=== PATIENT | female | born 1945 ===

== ENCOUNTER 2017-12-04 09:30 | Emergency (ER) | payer MEDICARE, OTHER ==
[2017-12-04 09:53] VITALS: BP 139/69; PULSE 84; RESP 18; TEMP 97.2
[2017-12-04] MEDS ORDERED: SODIUM CHLORIDE 0.9% 1,000 ML IV STA (10:20)
[2017-12-04] MEDS ORDERED: valACYclovir 500 MG TAB PO STA (10:30)
[2017-12-04] MEDS ORDERED: HYDROcodone/APAP 5-325MG 1 EACH TAB PO STA (10:31)
[2017-12-04] MEDS ORDERED: valACYclovir HCL 1,000 MG TABLET PO STA (10:33)
--- NOTE | 2017-12-04 10:35 | ED ---
General Adult HPI - General Chief complaint: Fever Stated complaint: Fever and rash Time Seen by Provider: 12/04/17 10:10 Source: patient, family, RN notes reviewed Mode of arrival: ambulatory Limitations: language barrier - History of Present Illness Initial comments: This a 72-year-old female presents emergency Department chief complaint rash in the right side. Patient states started last few days. He states is painful. She complains of pain on the right side of her head associated with. Patient felt that she had a fever last night took some Tylenol recent, which and today. Patient has no fever. Patient denies cough, chest congestion, neck pain, neck stiffness, nausea, vomiting diarrhea constipation no dysuria no hematuria denies any body aches. - Related Data Home Medications Medication Instructions Recorded Confirmed Anastrozole [Arimidex] 1 mg PO DAILY 10/28/17 10/28/17 Ascorbic Acid [Vitamin C] 1,000 mg PO DAILY 10/28/17 10/28/17 Aspirin 81 mg PO DAILY 10/28/17 10/28/17 Atorvastatin [Lipitor] 40 mg PO HS 10/28/17 10/28/17 Chlorthalidone [Hygroton] 25 mg PO DAILY 10/28/17 10/28/17 Cholecalciferol (Vitamin D3) 2,000 unit PO DAILY 10/28/17 10/28/17 [Vitamin D3] Glucosam/Bashir-Msm1/C/Vitaliy/Bosw 1 tab PO DAILY 10/28/17 10/28/17 [Glucosamine-Chondroitin Tablet] Ibuprofen 200 - 800 mg PO Q6H PRN 10/28/17 10/28/17 Losartan Potassium 100 mg PO DAILY 10/28/17 10/28/17 Metoprolol Tartrate [Lopressor] 12.5 mg PO BID 10/28/17 10/28/17 Risedronate Sodium [Actonel] 35 mg PO SA 10/28/17 10/28/17 metFORMIN HCL [Glucophage] 500 mg PO DAILY 10/28/17 10/28/17 Previous Rx's Medication Instructions Recorded Amoxicillin/Potassium Clav 1 tab PO Q12HR 7 Days #14 tab 10/30/17 [Augmentin 875-125 Tablet] Promethazine HCl/Codeine 5 ml PO Q6HR 5 Days #100 ml 10/30/17 [Prometh-Codein 6.25-10 mg/5 ml] predniSONE 10 mg PO DAILY 12 Days #24 tab 10/30/17 Albuterol Sulfate [Proair Hfa] 2 puff INHALATION QID #1 inhaler 10/31/17 Hydrocodone/Acetaminophen [Casmalia 1 tab PO Q6HR PRN #20 tab 12/04/17 5-325] valACYclovir HCL [Valtrex] 1,000 mg PO Q8HR #30 tab 12/04/17 Allergies Allergy/AdvReac Type Severity Reaction Status Date / Time No Known Allergies Allergy Verified 12/04/17 09:53 Review of Systems ROS Statement: Those systems with pertinent positive or pertinent negative responses have been documented in the HPI. ROS Other: All systems not noted in ROS Statement are negative. Past Medical History Past Medical History: Coronary Artery Disease (CAD), Cancer, Diabetes Mellitus, GERD/Reflux, Hyperlipidemia, Hypertension, Myocardial Infarction ([place]), Osteoarthritis (OA) Additional Past Medical History / Comment(s): rt breast cancer(sc and chemo),rt arm lymhedema, benign thyroid nodules,anxiety,osteoporosis, macular pucker lt eye, "born with only one kidney", received a shingles vaccine 2014, Last Myocardial Infarction Date:: ?2004 or 2005 History of Any Multi-Drug Resistant Organisms: None Reported Past Surgical History: Section Additional Past Surgical History / Comment(s): right mastectomy, thyrid nodules removed([place]) Past Anesthesia/Blood Transfusion Reactions: No Reported Reaction Past Psychological History: No Psychological Hx Reported Smoking Status: Never smoker Past Alcohol Use History: None Reported Past Drug Use History: None Reported - Past Family History Father History Unknown: Yes General Exam Limitations: language barrier General appearance: alert, in no apparent distress Head exam: Present: atraumatic, normocephalic, normal inspection Eye exam: Present: normal appearance, PERRL, EOMI. Absent: scleral icterus, conjunctival injection, periorbital swelling ENT exam: Present: normal exam, normal oropharynx, mucous membranes moist Neck exam: Present: normal inspection, full ROM. Absent: tenderness, meningismus, lymphadenopathy Respiratory exam: Present: normal lung sounds bilaterally. Absent: respiratory distress, wheezes, rales, rhonchi, stridor Cardiovascular Exam: Present: regular rate, normal rhythm, normal heart sounds. Absent: systolic murmur, diastolic murmur, rubs, gallop, clicks GI/Abdominal exam: Present: soft, normal bowel sounds. Absent: distended, tenderness, guarding, rebound, rigid Neurological exam: Present: alert, oriented X3, CN II-XII intact Skin exam: Present: warm, dry, intact, normal color, rash (Erythematous it's vesicular papular rash noted of the right side upper chest, right neck region) Course Vital Signs 12/04/17 09:50 Temperature 97.2 F L Pulse Rate 84 Respiratory 18 Rate Blood Pressure 139/69 O2 Sat by Pulse 100 Oximetry Medical Decision Making - Medical Decision Making 72-year-old female presented from for rash, possible fever. Patient's vitals stable no evidence of fever no evidence of bacterial infection. Patient exam is benign other than rash consistent with shingles. Patient was started on Valtrex, pain medication return parameters discussed. Disposition Clinical Impression: Herpes zoster Disposition: HOME SELF-CARE Condition: Stable Instructions: Shingles (ED) Additional Instructions: Please return to the Emergency Department if symptoms worsen or any other concerns. Prescriptions: Hydrocodone/Acetaminophen [Casmalia 5-325] 1 tab PO Q6HR PRN #20 tab PRN Reason: Pain valACYclovir HCL [Valtrex] 1,000 mg PO Q8HR #30 tab Referrals: Dmitry Finn MD [Primary Care Provider] - 1-2 days Time of Disposition: 10:35
== END 2017-12-04 10:47 | disposition home or self-care (01) ==
LOC: EC 09:30
DX: B02.9 Zoster without complications (principal); E78.5 Hyperlipidemia, unspecified; I10 Essential (primary) hypertension; M81.0 Age-related osteoporosis without current pathological fracture; E11.9 Type 2 diabetes mellitus without complications; I25.10 Atherosclerotic heart disease of native coronary artery without angina pectoris; I25.2 Old myocardial infarction; M19.90 Unspecified osteoarthritis, unspecified site; Z85.3 Personal history of malignant neoplasm of breast; Z79.82 Long term (current) use of aspirin; Z79.84 Long term (current) use of oral hypoglycemic drugs; Z79.899 Other long term (current) drug therapy; Z92.21 Personal history of antineoplastic chemotherapy; Z90.11 Acquired absence of right breast and nipple
CPT/HCPCS: 99283

== ENCOUNTER 2017-12-09 03:50 | Inpatient (IN) | payer MEDICARE, OTHER ==
[2017-12-09] MEDS ORDERED: SODIUM CHLORIDE 0.9% 1,000 ML IV STA (03:54)
--- NOTE | 2017-12-09 03:57 | ED ---
General Adult HPI - General Stated complaint: Weakness Time Seen by Provider: 12/09/17 03:54 Source: patient, family, RN notes reviewed, old records reviewed Limitations: language barrier - History of Present Illness Initial comments: 72-year-old female presenting with generalized weakness. Patient speaks limited Vietnamese, her who is at bedside is able to give additional details. She was recently diagnosed with shingles, currently on valacyclovir and Esko for pain. Over the past 24-48 hours patient has had difficulty with ambulation and generalized weakness. No history of fever. According to her she's had decreased urine output and some episodes of confusion. No history of fever. No history of vomiting or diarrhea. No pain complaints, no chest pain or dyspnea. - Related Data Home Medications Medication Instructions Recorded Confirmed Anastrozole [Arimidex] 1 mg PO DAILY 10/28/17 12/09/17 Ascorbic Acid [Vitamin C] 1,000 mg PO DAILY 10/28/17 12/09/17 Aspirin 81 mg PO DAILY 10/28/17 12/09/17 Atorvastatin [Lipitor] 40 mg PO HS 10/28/17 12/09/17 Chlorthalidone [Hygroton] 25 mg PO DAILY 10/28/17 12/09/17 Cholecalciferol (Vitamin D3) 2,000 unit PO DAILY 10/28/17 12/09/17 [Vitamin D3] Glucosam/Bashir-Msm1/C/Vitaliy/Bosw 1 tab PO DAILY 10/28/17 12/09/17 [Glucosamine-Chondroitin Tablet] Ibuprofen 200 - 800 mg PO Q6H PRN 10/28/17 12/09/17 Losartan Potassium 100 mg PO DAILY 10/28/17 12/09/17 Metoprolol Tartrate [Lopressor] 12.5 mg PO BID 10/28/17 12/09/17 Risedronate Sodium [Actonel] 35 mg PO SA 10/28/17 12/09/17 metFORMIN HCL [Glucophage] 500 mg PO DAILY 10/28/17 12/09/17 Previous Rx's Medication Instructions Recorded Amoxicillin/Potassium Clav 1 tab PO Q12HR 7 Days #14 tab 10/30/17 [Augmentin 875-125 Tablet] Promethazine HCl/Codeine 5 ml PO Q6HR 5 Days #100 ml 10/30/17 [Prometh-Codein 6.25-10 mg/5 ml] predniSONE 10 mg PO DAILY 12 Days #24 tab 10/30/17 Albuterol Sulfate [Proair Hfa] 2 puff INHALATION QID #1 inhaler 10/31/17 Hydrocodone/Acetaminophen [Esko 1 tab PO Q6HR PRN #20 tab 12/04/17 5-325] valACYclovir HCL [Valtrex] 1,000 mg PO Q8HR #30 tab 12/04/17 Allergies Allergy/AdvReac Type Severity Reaction Status Date / Time No Known Allergies Allergy Verified 12/09/17 03:57 Review of Systems ROS Statement: Those systems with pertinent positive or pertinent negative responses have been documented in the HPI. ROS Other: All systems not noted in ROS Statement are negative. Past Medical History Past Medical History: Coronary Artery Disease (CAD), Cancer, Diabetes Mellitus, GERD/Reflux, Hyperlipidemia, Hypertension, Myocardial Infarction ([place]), Osteoarthritis (OA) Additional Past Medical History / Comment(s): rt breast cancer(sc and chemo),rt arm lymhedema, benign thyroid nodules,anxiety,osteoporosis, macular pucker lt eye, "born with only one kidney", received a shingles vaccine 2014, Last Myocardial Infarction Date:: ?2004 or 2005 History of Any Multi-Drug Resistant Organisms: None Reported Past Surgical History: Section Additional Past Surgical History / Comment(s): right mastectomy, thyrid nodules removed([place]) Past Anesthesia/Blood Transfusion Reactions: No Reported Reaction Past Psychological History: No Psychological Hx Reported Smoking Status: Never smoker Past Alcohol Use History: None Reported Past Drug Use History: None Reported - Past Family History Father History Unknown: Yes General Exam General appearance: alert, in no apparent distress Head exam: Present: atraumatic, normocephalic Eye exam: Present: normal appearance, PERRL ENT exam: Present: mucous membranes dry Neck exam: Present: normal inspection, tenderness (Right cervical zoster), other. Absent: meningismus Respiratory exam: Absent: normal lung sounds bilaterally, respiratory distress, wheezes Cardiovascular Exam: Present: regular rate, normal rhythm GI/Abdominal exam: Present: soft. Absent: distended, tenderness, guarding Extremities exam: Present: normal inspection. Absent: normal capillary refill, pedal edema Neurological exam: Present: alert. Absent: motor sensory deficit Skin exam: Present: warm, dry, rash (Right cervical zoster) Course Vital Signs 12/09/17 12/09/17 03:51 05:03 Temperature 98.1 F Pulse Rate 83 90 Respiratory 20 20 Rate Blood Pressure 160/93 166/71 O2 Sat by Pulse 98 97 Oximetry EKG Findings - EKG Comments: EKG Findings:: EKG normal sinus rhythm, ventricular rate 80, PA interval 174, QRS duration 80. QT 6:15, poor baseline secondary to tremor, no definitive signs of ischemia Medical Decision Making - Medical Decision Making 72-year-old female presenting with weakness and confusion. Patient has nonfocal neurologic examination. She is confused according to family, history limited from patient secondary to language barrier and current mental status. Laboratory studies obtained, patient has profound hyponatremia with a sodium of 96, potassium 2.5, chloride 57. This represents severe electrolyte abnormalities. White blood cell, hemoglobin within normal limits. Case is discussed with nephrology, patient will be placed on 3% hypertonic saline at 20 mL per hour, with repeat labs in 3 hours. Urinalysis, urine sodium and urine osmolality are pending. Chest x-ray shows possible atelectasis, admitting team will obtain chest CT. Head CT is negative for intracranial hemorrhage or mass effect. Patient will be placed in ICU for close monitoring. Dr. Martinez and Dr. Givens aware. - Lab Data Result diagrams: 12/09/17 04:11 12/09/17 04:11 Lab Results 12/09/17 12/09/17 12/09/17 Range/Units 04:11 04:11 04:11 WBC 8.9 (3.8-10.6) k/uL RBC 5.26 (3.80-5.40) m/uL Hgb 15.0 D (11.4-16.0) gm/dL Hct 38.9 (34.0-46.0) % MCV 74.1 L D (80.0-100.0) fL MCH 28.5 (25.0-35.0) pg MCHC 38.5 H (31.0-37.0) g/dL RDW 13.4 (11.5-15.5) % Plt Count 418 (150-450) k/uL Neutrophils % (Manual) 72 % Lymphocytes % (Manual) 14 % Monocytes % (Manual) 14 % Neutrophils # (Manual) 6.41 (1.3-7.7) k/uL Lymphocytes # (Manual) 1.25 (1.0-4.8) k/uL Monocytes # (Manual) 1.25 H (0-1.0) k/uL Nucleated RBCs 0 (0-0) /100 WBC Manual Slide Review Performed Hyperchromasia Marked Microcytosis Slight PT (9.0-12.0) sec INR (<1.2) APTT (22.0-30.0) sec Sodium 96 L* (137-145) mmol/L Potassium 2.5 L* (3.5-5.1) mmol/L Chloride 57 L* (98-107) mmol/L Carbon Dioxide 28 (22-30) mmol/L Anion Gap 11 mmol/L BUN 10 (7-17) mg/dL Creatinine 0.40 L (0.52-1.04) mg/dL Est GFR (CKD-EPI)AfAm >90 (>60 ml/min/1.73 sqM) Est GFR (CKD-EPI)NonAf >90 (>60 ml/min/1.73 sqM) Glucose 170 H (74-99) mg/dL POC Glucose (mg/dL) (75-99) mg/dL POC Glu [employer] ID Plasma Lactic Acid Benigno (0.7-2.0) mmol/L Calcium 8.7 (8.4-10.2) mg/dL Magnesium 1.7 (1.6-2.3) mg/dL Total Bilirubin 1.6 H (0.2-1.3) mg/dL AST 69 H (14-36) U/L ALT 34 (9-52) U/L Alkaline Phosphatase 110 (38-126) U/L Total Creatine Kinase 554 H (30-135) U/L CK-MB (CK-2) 4.9 H* (0.0-2.4) ng/mL CK-MB (CK-2) Rel Index 0.9 Troponin I 0.034 (0.000-0.034) ng/mL Total Protein 7.1 (6.3-8.2) g/dL Albumin 4.2 (3.5-5.0) g/dL 12/09/17 12/09/17 12/09/17 Range/Units 04:11 04:11 04:19 WBC (3.8-10.6) k/uL RBC (3.80-5.40) m/uL Hgb (11.4-16.0) gm/dL Hct (34.0-46.0) % MCV (80.0-100.0) fL MCH (25.0-35.0) pg MCHC (31.0-37.0) g/dL RDW (11.5-15.5) % Plt Count (150-450) k/uL Neutrophils % (Manual) % Lymphocytes % (Manual) % Monocytes % (Manual) % Neutrophils # (Manual) (1.3-7.7) k/uL Lymphocytes # (Manual) (1.0-4.8) k/uL Monocytes # (Manual) (0-1.0) k/uL Nucleated RBCs (0-0) /100 WBC Manual Slide Review Hyperchromasia Microcytosis PT 9.9 (9.0-12.0) sec INR 1.0 (<1.2) APTT 23.8 (22.0-30.0) sec Sodium (137-145) mmol/L Potassium (3.5-5.1) mmol/L Chloride (98-107) mmol/L Carbon Dioxide (22-30) mmol/L Anion Gap mmol/L BUN (7-17) mg/dL Creatinine (0.52-1.04) mg/dL Est GFR (CKD-EPI)AfAm (>60 ml/min/1.73 sqM) Est GFR (CKD-EPI)NonAf (>60 ml/min/1.73 sqM) Glucose (74-99) mg/dL POC Glucose (mg/dL) 174 H (75-99) mg/dL POC Glu [employer] ID Don Fisher Plasma Lactic Acid Benigno 1.4 (0.7-2.0) mmol/L Calcium (8.4-10.2) mg/dL Magnesium (1.6-2.3) mg/dL Total Bilirubin (0.2-1.3) mg/dL AST (14-36) U/L ALT (9-52) U/L Alkaline Phosphatase (38-126) U/L Total Creatine Kinase (30-135) U/L CK-MB (CK-2) (0.0-2.4) ng/mL CK-MB (CK-2) Rel Index Troponin I (0.000-0.034) ng/mL Total Protein (6.3-8.2) g/dL Albumin (3.5-5.0) g/dL Critical Care Time Critical Care Time: Yes Total Critical Care Time: 45 Disposition Clinical Impression: Hyponatremia with decreased serum osmolality Disposition: ADMITTED IP TO THIS [facility] Condition: Serious Referrals: Dmitry Finn MD [Primary Care Provider] - 1-2 days Time of Disposition: 05:35 Decision to Admit Reason: Admit from EC Decision Date: 12/09/17 Decision Time: 05:36
[2017-12-09 04:20] LABS: Glucose,Whole Blood 174 mg/dL (75-99)
[2017-12-09 04:31] LABS: ALT 34 U/L (9-52); AST 69 U/L (14-36); Albumin 4.2 g/dL (3.5-5.0); Alkaline Phosphatase 110 U/L (38-126); Anion Gap 11 mmol/L; Blood Urea Nitrogen 10 mg/dL (7-17); Calcium 8.7 mg/dL (8.4-10.2); Carbon Dioxide 28 mmol/L (22-30); Glucose 170 mg/dL (74-99); Magnesium 1.7 mg/dL (1.6-2.3); Total Bilirubin 1.6 mg/dL (0.2-1.3); Total Protein 7.1 g/dL (6.3-8.2)
[2017-12-09 04:34] LABS: HCT 38.9 % (34.0-46.0); Hyperchromasia Marked; MCH 28.5 pg (25.0-35.0); Mean Platelet Volume 5.8; Microcytosis Slight; Platelet Count 418 k/uL (150-450); RBC 5.26 m/uL (3.80-5.40); RDW 13.4 % (11.5-15.5); WBC 8.9 k/uL (3.8-10.6)
[2017-12-09 04:35] LABS: MCHC 38.5 g/dL (31.0-37.0); MCV 74.1 fL (80.0-100.0); Partial Thromboplastin Time 23.8 sec (22.0-30.0); Potassium 2.5 mmol/L (3.5-5.1); Prothrombin Time 9.9 sec (9.0-12.0); Sodium 96 mmol/L (137-145)
[2017-12-09 04:36] LABS: Chloride 57 mmol/L (98-107)
[2017-12-09] MEDS ORDERED: POTASSIUM CHLORIDE ER 20 MEQ TAB.ER PO STA ×2 (04:41→12:50)
[2017-12-09] MEDS ORDERED: SODIUM CHLORIDE 0.9% 1,000 ML IV SCH ×2 (04:45→13:00)
[2017-12-09 04:59] LABS: Troponin I 0.034 ng/mL (0.000-0.034)
[2017-12-09 05:04] LABS: Creatine Kinase MB 4.9 ng/mL (0.0-2.4); Lymphocytes # (M) 1.25 k/uL (1.0-4.8); Monocytes # (M) 1.25 k/uL (0-1.0); Neutrophils # (M) 6.41 k/uL (1.3-7.7); Neutrophils % (M) 72 %; Nucleated Red Blood Cells 0 /100 WBC (0-0); Total Cells Counted 100
[2017-12-09] MEDS: POTASSIUM CHLORIDE 20 MEQ in WATER FOR INJECTION 1 100ML.BAG IVPB SCH ×2 (05:07→07:12)
--- NOTE | 2017-12-09 05:13 | CT ---
EXAM: CT Head Without Intravenous Contrast CLINICAL HISTORY: ITS.REASON CT Reason: weakness TECHNIQUE: Axial computed tomography images of the head/brain without intravenous contrast. CTDI is 60.3 mGy and DLP is 1054.2 mGy-cm. This CT exam was performed using one or more of the following dose reduction techniques: automated exposure control, adjustment of the mA and/or kV according to patient size, and/or use of iterative reconstruction technique. COMPARISON: CT head dated 10/28/2017. FINDINGS: Brain: Unchanged subtle focus low attenuation within the left parietal white matter. No evidence of acute intracranial hemorrhage. No mass effect or herniation. Ventricles: Unremarkable. No ventriculomegaly. Bones/joints: No acute fracture. Soft tissues: Unremarkable. Vasculature: Mild calcification of the distal internal carotid arteries. Sinuses: Unremarkable as visualized. Mastoid air cells: Unremarkable as visualized. IMPRESSION: No acute intracranial hemorrhage. Unchanged subtle focus of low attenuation within left parietal white matter is nonspecific but favored to represent a small chronic infarct.
--- NOTE | 2017-12-09 05:14 | XR ---
EXAM: XR Chest, 2 Views CLINICAL HISTORY: ITS.REASON XR Reason: Weakness TECHNIQUE: Frontal and lateral views of the chest. COMPARISON: Chest x-ray dated 11/12/2017. FINDINGS: Lungs: Mild patchy opacity along the left cardiac border may represent atelectasis or mild pneumonia. Pleural space: Unremarkable. No pneumothorax. Heart: Mild cardiomegaly. Mediastinum: Unremarkable. Bones/joints: Chronic deformity of the right humeral head. Reidentified severe degenerative changes of the right acromioclavicular joint. IMPRESSION: Mild patchy opacity along the left cardiac border may represent atelectasis or mild pneumonia.
[2017-12-09] MEDS ORDERED: SODIUM CHLORIDE 3%(HYPERTONIC) 500 ML IV SCH (05:15)
[2017-12-09] MEDS ORDERED: NALOXONE 0.4 MG/ML 1 ML VIAL IV PRN (05:24)
[2017-12-09 06:00] LABS: Amorphous Sediment,Urine Rare /hpf; Appearance,Urine Cloudy (Clear); Bilirubin,Urine Negative (Negative); Blood,Urine Negative (Negative); Color,Urine Light Yellow; Glucose,Urine (UA) Negative (Negative); Ketones,Urine 1+ (Negative); Leukocyte Esterase,Urine Negative (Negative); Nitrite,Urine Negative (Negative); PH, Urine 7.5 (5.0-8.0); Protein,Urine Trace (Negative); RBC,Urine 1 /hpf (0-5); Specific Gravity,Urine 1.009 (1.001-1.035); Urobilinogen,Urine <2.0 mg/dL (<2.0); WBC,Urine 2 /hpf (0-5)
[2017-12-09] MEDS ORDERED: RX INFO: IV CONTRAST WAS GIVEN 1 EACH MISC MISCELLANE PRN (06:35)
[2017-12-09] MEDS ORDERED: hydrALAZINE HCL 20 MG/ML 1 ML VIAL IVP PRN (06:44)
--- NOTE | 2017-12-09 06:44 | P.HPIM ---
History of Present Illness H&P Date: 12/09/17 Chief Complaint: confusion Patient is a 72-year-old female with a past medical history of diabetes mellitus type 2, hypertension, dyslipidemia, osteoporosis, and prior breast cancer treated with mastectomy and chemo who was brought into the emergency department by her family for increased confusion. In the emergency department she underwent an extensive evaluation. On initial exam she was slightly hypertensive with a blood pressure 160/93. Initial laboratory analysis showed a marked hyponatremia of 96, potassium 2.5, glucose 170, and slightly elevated CK of 554. Chest x-ray showed mild patchy opacity along the left cardiac border which appears to represent atelectasis. CT head showed no acute process. Dr. Martinez was contacted in the emergency department and recommended admission to the ICU and 3% saline as well as additional laboratory analysis. Arrangements were made for admission to the ICU. Patient was seen and examined at bedside in the emergency department. Family provided a history as patient has increased confusion. They stated for the last 4-5 days she has been changing from her baseline. She's had increased confusion. She has been talking when they're not asking her questions consistent with auditory hallucinations. They state that she has been complaining of dizziness and has been off balance. She also has developed profound weakness and had inability to stand from a sitting position and was not able to walk today. She's had decreased urination since yesterday. They have also noted a low appetite. She did start taking Valtrex on November 29 or due to severe outbreak of shingles. She did have the shingles vaccine in June of this year. She is also had constipation. Her daughter reports that she has been complaining she could not take a deep breath. She was also started on [place]. None of her other medications are new. She has been on chlorthalidone for quite some time. She did have right breast cancer in 2012 with a mastectomy and does have lymphedema. Review of Systems Unable to obtain further review of systems due to confusion. ROS unobtainable: due to mental status Past Medical History Past Medical History: Coronary Artery Disease (CAD), Cancer, Diabetes Mellitus, GERD/Reflux, Hyperlipidemia, Hypertension, Myocardial Infarction ([place]), Osteoarthritis (OA) Additional Past Medical History / Comment(s): rt breast cancer(sc and chemo 2012 ),rt arm lymhedema, benign thyroid nodules,anxiety,osteoporosis, macular pucker lt eye, solitary kidney, received a shingles vaccine Last Myocardial Infarction Date:: ?2004 or 2005 History of Any Multi-Drug Resistant Organisms: None Reported Past Surgical History: Section Additional Past Surgical History / Comment(s): right mastectomy, thyrid nodules biopsied (benign) Past Anesthesia/Blood Transfusion Reactions: No Reported Reaction Past Psychological History: No Psychological Hx Reported Smoking Status: Never smoker Past Alcohol Use History: None Reported Past Drug Use History: None Reported Additional History: Lives with her , very active, no assistive devices - Past Family History Father Additional Family Medical History / Comment(s): from Complications from kidney failure Mother Additional Family Medical History / Comment(s): from diabetic complications Medications and Allergies Home Medications Medication Instructions Recorded Confirmed Type Anastrozole [Arimidex] 1 mg PO DAILY 10/28/17 12/09/17 History Ascorbic Acid [Vitamin C] 1,000 mg PO DAILY 10/28/17 12/09/17 History Aspirin 81 mg PO DAILY 10/28/17 12/09/17 History Atorvastatin [Lipitor] 40 mg PO HS 10/28/17 12/09/17 History Chlorthalidone [[place]] 25 mg PO DAILY 10/28/17 12/09/17 History Cholecalciferol (Vitamin D3) 2,000 unit PO DAILY 10/28/17 12/09/17 History [Vitamin D3] Glucosam/Bashir-Msm1/C/Vitaliy/Bosw 1 tab PO DAILY 10/28/17 12/09/17 History [Glucosamine-Chondroitin Tablet] Ibuprofen 200 - 800 mg PO Q6H PRN 10/28/17 12/09/17 History Losartan Potassium 100 mg PO DAILY 10/28/17 12/09/17 History Metoprolol Tartrate [Lopressor] 12.5 mg PO BID 10/28/17 12/09/17 History Risedronate Sodium [Actonel] 35 mg PO SA 10/28/17 12/09/17 History metFORMIN HCL [Glucophage] 500 mg PO DAILY 10/28/17 12/09/17 History Amoxicillin/Potassium Clav 1 tab PO Q12HR 7 Days #14 tab 10/30/17 12/09/17 Rx [Augmentin 875-125 Tablet] Promethazine HCl/Codeine 5 ml PO Q6HR 5 Days #100 ml 10/30/17 12/09/17 Rx [Prometh-Codein 6.25-10 mg/5 ml] predniSONE 10 mg PO DAILY 12 Days #24 tab 10/30/17 12/09/17 Rx Albuterol Sulfate [Proair Hfa] 2 puff INHALATION QID #1 inhaler 10/31/17 Rx Hydrocodone/Acetaminophen [[place] 1 tab PO Q6HR PRN #20 tab 12/04/17 12/09/17 Rx 5-325] valACYclovir HCL [Valtrex] 1,000 mg PO Q8HR #30 tab 12/04/17 12/09/17 Rx Allergies Allergy/AdvReac Type Severity Reaction Status Date / Time No Known Allergies Allergy Verified 12/09/17 03:57 Physical Exam Osteopathic Statement: *. No significant issues noted on an osteopathic structural exam other than those noted in the History and Physical/Consult. Vitals: Vital Signs Temp Pulse Resp BP Pulse Ox 12/09/17 05:03 90 20 166/71 97 12/09/17 03:51 98.1 F 83 20 160/93 98 Intake and Output 12/08/17 12/08/17 12/09/17 14:59 22:59 06:59 Output Total 700 Balance -700 Output: Urine 700 Uretheral ([place]) 700 Other: Weight 56.245 kg General: Ill-appearing, no distress, appears at stated age, normal weight Derm: Right shoulder/neck/arm with crust and scale 3 vesicles on arm, no unusual ecchymoses, warm, dry Head: atraumatic, normocephalic, symmetric Eyes: EOMI, no lid lag, anicteric sclera, pupils equal round sluggishly reactive to light ENT: Nose and ears atraumatic, no thrush Neck: No thyromegaly, no cervical lymphadenopathy, trachea midline, supple Mouth: no lip lesion, mucus membranes moist Cardiovascular: S1S2 reg, no murmur, positive posterior tibial pulse bilateral, trace edema, capillary refill less than 2 seconds Lungs: CTA bilateral, no rhonchi, no rales , no accessory muscle use Abdominal: soft, nontender to palpation, no guarding, no appreciable organomegaly, normal bowel sounds Ext: no gross muscle atrophy, moving all 4 extremities independently unable to participate in formal muscle strength testing, no contractures, Neuro: CN II-XI grossly intact, light touch intact all 4 extremities, finger to nose within normal limits, Psych: Alert, intermittently follows commands in estonian and own language, flat affect Results CBC & Chem 7: 12/09/17 04:11 12/09/17 04:11 Labs: Abnormal Lab Results - Last 24 Hours (Table) 12/09/17 12/09/17 12/09/17 Range/Units 04:11 04:11 04:11 MCV 74.1 L D (80.0-100.0) fL MCHC 38.5 H (31.0-37.0) g/dL Monocytes # (Manual) 1.25 H (0-1.0) k/uL Sodium 96 L* (137-145) mmol/L Potassium 2.5 L* (3.5-5.1) mmol/L Chloride 57 L* (98-107) mmol/L Creatinine 0.40 L (0.52-1.04) mg/dL Glucose 170 H (74-99) mg/dL POC Glucose (mg/dL) (75-99) mg/dL Osmolality (280-301) mosm/kg Total Bilirubin 1.6 H (0.2-1.3) mg/dL AST 69 H (14-36) U/L Total Creatine Kinase 554 H (30-135) U/L CK-MB (CK-2) 4.9 H* (0.0-2.4) ng/mL Urine Appearance (Clear) Urine Protein (Negative) Urine Ketones (Negative) Amorphous Sediment (None) /hpf 12/09/17 12/09/17 12/09/17 Range/Units 04:11 04:19 05:22 MCV (80.0-100.0) fL MCHC (31.0-37.0) g/dL Monocytes # (Manual) (0-1.0) k/uL Sodium (137-145) mmol/L Potassium (3.5-5.1) mmol/L Chloride (98-107) mmol/L Creatinine (0.52-1.04) mg/dL Glucose (74-99) mg/dL POC Glucose (mg/dL) 174 H (75-99) mg/dL Osmolality 206 L* (280-301) mosm/kg Total Bilirubin (0.2-1.3) mg/dL AST (14-36) U/L Total Creatine Kinase (30-135) U/L CK-MB (CK-2) (0.0-2.4) ng/mL Urine Appearance Cloudy H (Clear) Urine Protein Trace H (Negative) Urine Ketones 1+ H (Negative) Amorphous Sediment Rare H (None) /hpf Chest x-ray: report reviewed CT Scan - head: report reviewed Thrombosis Risk Factor Assmnt - DVT/VTE Prophylaxis DVT/VTE Prophylaxis: Pharmacologic Prophylaxis ordered Assessment and Plan Assessment: Metabolic encephalopathy - treat electrolyte derangements - supportive care Hyponatremia - appears euvolemic - 3% saline ordered with recheck in 3 hours - check TSH - seizure precautions - hold chlorthalidone, motrin - nephrology consult - concerned for SIADH with hx of breast Ca and atelectasis on CXR will order CT of the chest for this afternoon - urine osmol and urine NA are pending Hypokalemia - tele - replace and check - magnesium low normal recheck with next set of lytes Shingles - hold valtrex with current symptoms - pain control DM 2 - off metformin - SSI - A1C 6.4 on 10/28/17 HTN urgency - likely due to stress - prn hydralazine - hold chlorthalidone - Losartan, metoprolol HLD - statin GERD - PPI Hx of breast Ca - right lymphedema Osteoprosis - on bisphosphonate Surrogate decision-maker: Dread CODE STATUS:Full DVT prophylaxis: Lovenox Discussed with: Patient, family, ED physician, ED nursing Anticipated discharge: 3-[address]: home A total of 80 minutes was spent on the care of this complex patient more than 50 % of the time was spent in counseling and care coordination.
[2017-12-09 08:32] LABS: Glucose,Whole Blood 157 mg/dL (75-99)
--- NOTE | 2017-12-09 08:45 | CT ---
EXAMINATION TYPE: CT chest w con DATE OF EXAM: 12/09/2017 COMPARISON: NONE HISTORY: Cough, history of breast cancer CT DLP: 128.20 mGycm Automated exposure control for dose reduction was used. CONTRAST: CT scan of the chest is performed with IV Contrast, patient injected with 80 mL of Visipaque 320. FINDINGS: The thyroid is enlarged and shows heterogeneous density likely due to multinodular goiter. It is enlarged. LUNGS: The lungs are grossly clear, there is no concerning parenchymal mass or nodule identified. T here is no pleural effusion or pneumothorax seen. The tracheobronchial tree is patent. MEDIASTINUM: There are no greater than 1 cm hilar or mediastinal lymph nodes. No pericardial effusi on is seen. AORTA: No additional significant abnormality is seen. OTHER: The heart is enlarged. There is a small hiatal hernia suspected. Left kidney is not seen, lef t kidney may be enlarged. Patient is post right mastectomy. Thoracic spondylosis noted incidentally. Common bile duct measures approximately 1 cm. IMPRESSION: Cardiomegaly. Postop changes. Probable multinodular goiter. Left kidney not seen, there may be compensatory hypertrophy of the right kidney. Possible common bile duct enlargement.
[2017-12-09 10:06] LABS: Phosphorus 1.7 mg/dL (2.5-4.5)
[2017-12-09] MEDS: DOCUSATE 100 MG CAP PO SCH ×2 (10:27→21:41)
[2017-12-09] MEDS: ENOXAPARIN 40 MG/0.4 ML SYRINGE SQ SCH (10:27)
[2017-12-09] MEDS: ALBUTEROL NEBULIZED 2.5 MG/3 ML INHALATION SCH ×4 (10:29→20:59)
[2017-12-09 11:08] LABS: T4, Free (Free Thyroxine) 2.86 ng/dL (0.78-2.19)
[2017-12-09 11:57] LABS: Anion Gap 11 mmol/L; Blood Urea Nitrogen 7 mg/dL (7-17); Calcium 8.1 mg/dL (8.4-10.2); Carbon Dioxide 25 mmol/L (22-30); Glucose 125 mg/dL (74-99)
[2017-12-09 12:00] LABS: Chloride 70 mmol/L (98-107); Potassium 2.9 mmol/L (3.5-5.1); Sodium 106 mmol/L (137-145)
[2017-12-09] MEDS: CHOLECALCIFEROL 1,000 UNIT TAB PO SCH (12:44)
[2017-12-09] MEDS: METOPROLOL TARTRATE 12.5 MG TAB PO SCH (12:45)
[2017-12-09] MEDS: ASPIRIN 81 MG PO SCH (12:46)
[2017-12-09] MEDS: ANASTROZOLE 1 MG TAB PO SCH (12:46)
[2017-12-09] MEDS: LOSARTAN 50 MG TAB PO SCH (12:46)
[2017-12-09] MEDS: INSULIN ASPART 100 UNIT/ML 1 ML 10 ML VIAL SQ SCH ×3 (12:47→23:04)
[2017-12-09] MEDS ORDERED: POTASSIUM CHLORIDE 20 MEQ in WATER FOR INJECTION 1 100ML.BAG IVPB STA (12:53)
[2017-12-09 14:36] LABS: Anion Gap 7 mmol/L; Blood Urea Nitrogen 7 mg/dL (7-17); Calcium 8.1 mg/dL (8.4-10.2); Carbon Dioxide 26 mmol/L (22-30); Glucose 133 mg/dL (74-99)
[2017-12-09 14:49] LABS: Chloride 74 mmol/L (98-107); Sodium 107 mmol/L (137-145)
[2017-12-09 14:51] LABS: Potassium 2.6 mmol/L (3.5-5.1)
[2017-12-09] MEDS: DEXTROSE 5% IN WATER 1,000 ML IV SCH (15:21)
--- NOTE | 2017-12-09 18:25 | CONS ---
CONSULTATION REASON FOR CONSULT: Hyponatremia. HISTORY OF PRESENT ILLNESS: Patient is a 72-year-old female with history of hypertension. She also has type 2 diabetes. The patient was admitted to the hospital with a history of increased mental status changes. She was found to have a serum sodium of 96 mEq/L. According to her , patient has not started any new medications recently. She did take Valtrex for shingles more than a week ago. No history of seizures. No previous history of hyponatremia. The patient does have a history of breast cancer status post mastectomy and chemotherapy. PAST MEDICAL HISTORY: Type 2 diabetes, hypertension, coronary artery disease. Breast cancer status post surgery, chemotherapy, osteoporosis, osteoarthritis. PAST SURGICAL HISTORY: Right mastectomy. SOCIAL HISTORY: Negative for smoking, drug abuse or alcohol abuse. MEDICATIONS: Medications at home included Arimidex, vitamin C, aspirin, Lipitor, chlorthalidone. The patient is also on ibuprofen, losartan, Lopressor, Actonel, Glucophage, prednisone, [place], Valacyclovir. ALLERGIES: None. REVIEW OF SYSTEMS: As per HPI. Other systems negative. PHYSICAL EXAMINATION: Patient is currently comfortable, awake. Mentation seems to have improved. Examination of the heart: S1, S2. Examination lungs: Bilateral breath sounds are heard. Abdomen is soft, nontender. Examination lower extremities shows no evidence of edema. DISINTEGRATOR FEEDER exam is grossly intact. Patient is moving all 4 extremities. She has no gross motor deficit. LABS: Reveals sodium of 96 on initial admission at 4:00 am. Repeat sodium was 106 at 11 at which time all fluids were discontinued and we have another sodium 107 three hours later. Urine osmolality was 357. Random urine sodium was 45. ASSESSMENT: 1. Hyponatremia. Patient clinically does not appear to be significantly volume depleted. In fact, her blood pressure is on the higher side. She had been on chlorthalidone, which will be held. Urine osmolality was not low. The patient was started on 3% saline as secondary to the severely low sodium as well as mental status changes. However, her serum sodium was up quite a bit at 106 from 96 in about 6 hours. Therefore, the 3% saline was discontinued. At this time I will maintain her off of all IV fluids. The 2nd sodium 3 hours later was again up at 107 at which time D5W has been started to help slow down the rate of increase in the serum sodium. Cortisol and TSH levels will be ordered, although I doubt underlying adrenal insufficiency given the hypertension. The patient will need to remain off of the thiazide diuretics. The goal increase initially is about 12 to 15 mEq in 24 hours. 2. Hypertension. Continue angiotensin receptor blockers and other medications that patient was taking at home. 3. History of type 2 diabetes. 4. History of breast cancer. 5. Mental status changes secondary to severe hyponatremia. PLAN: Continue monitoring serum sodium every 3 hours. Will continue D5W at 40 mL an hour for now and change fluids according to her next serum sodium level. Thank you for this consultation. We will continue to follow the patient with you during her hospitalization. The patient was seen this morning at 10:00 am. J LUIS / MANSOOR: [id number] /
[2017-12-09 19:27] LABS: Glucose,Whole Blood 214 mg/dL (75-99)
[2017-12-09 20:16] LABS: Anion Gap 10 mmol/L; Blood Urea Nitrogen 6 mg/dL (7-17); Calcium 8.4 mg/dL (8.4-10.2); Carbon Dioxide 24 mmol/L (22-30); Glucose 180 mg/dL (74-99); Potassium 3.3 mmol/L (3.5-5.1)
[2017-12-09 20:21] LABS: Chloride 75 mmol/L (98-107); Sodium 109 mmol/L (137-145)
[2017-12-09] MEDS ORDERED: DESMOPRESSIN INJ 1 MCG in SODIUM CHLORIDE 0.9% 50 ML IVPB ONE (21:30)
[2017-12-09] MEDS: POTASSIUM PHOSPHATE 15 MMOL in SODIUM CHLORIDE 0.9% 250 ML IV SCH (21:40)
[2017-12-09] MEDS: ATORVASTATIN 40 MG TAB PO SCH (21:41)
[2017-12-09] MEDS: METOPROLOL TARTRATE 25 MG TAB PO SCH (21:41)
[2017-12-10 00:30] LABS: Anion Gap 8 mmol/L; Calcium 8.4 mg/dL (8.4-10.2); Carbon Dioxide 22 mmol/L (22-30); Chloride 82 mmol/L (98-107); Glucose 161 mg/dL (74-99)
[2017-12-10 00:37] LABS: Sodium 112 mmol/L (137-145)
[2017-12-10 00:38] LABS: Blood Urea Nitrogen 7 mg/dL (7-17); Magnesium 2.1 mg/dL (1.6-2.3); Phosphorus 2.8 mg/dL (2.5-4.5); Potassium 4.9 mmol/L (3.5-5.1)
[2017-12-10] MEDS: POTASSIUM PHOSPHATE 15 MMOL in SODIUM CHLORIDE 0.9% 250 ML IV SCH ×3 (01:26→08:05)
[2017-12-10 04:31] LABS: Basophils % (A) 0 %; Eosinophils % (A) 0 %; HCT 37.1 % (34.0-46.0); HGB 13.6 gm/dL (11.4-16.0); Hyperchromasia Marked; Lymphocytes # (A) 1.3 k/uL (1.0-4.8); Lymphocytes % (A) 14 %; MCH 28.1 pg (25.0-35.0); MCHC 36.5 g/dL (31.0-37.0); MCV 76.9 fL (80.0-100.0); Monocytes # (A) 0.9 k/uL (0-1.0); Monocytes % (A) 9 %; Neutrophils % (A) 75 %; Platelet Count 383 k/uL (150-450); RBC 4.83 m/uL (3.80-5.40); RDW 13.6 % (11.5-15.5); WBC 9.3 k/uL (3.8-10.6)
[2017-12-10 04:38] LABS: Anion Gap 9 mmol/L; Blood Urea Nitrogen 6 mg/dL (7-17); Carbon Dioxide 24 mmol/L (22-30); Glucose 148 mg/dL (74-99); Magnesium 2.1 mg/dL (1.6-2.3); Phosphorus 1.5 mg/dL (2.5-4.5)
[2017-12-10 04:49] LABS: Sodium 111 mmol/L (137-145)
[2017-12-10 04:50] LABS: Chloride 78 mmol/L (98-107)
[2017-12-10] MEDS: DEXTROSE 5% IN WATER 1,000 ML IV SCH ×2 (06:01→19:59)
[2017-12-10 08:23] LABS: Glucose,Whole Blood 179 mg/dL (75-99)
--- NOTE | 2017-12-10 08:33 | XR ---
EXAMINATION TYPE: XR chest 1V DATE OF EXAM: 12/10/2017 COMPARISON: Prior chest x-ray 12/09/2017 HISTORY: Shortness of breath TECHNIQUE: Single frontal view of the chest is obtained. FINDINGS: Patient is rotated. Heart is enlarged. Aorta appears dense, prominent likely due to rotati on. No evident pneumothorax or pleural effusion. Paratracheal density may be accentuated on the right due to rotation. Arthropathy, old trauma suspected in the proximal right humerus. No airspace diseas e seen. IMPRESSION: Cardiomegaly
[2017-12-10] MEDS: INSULIN ASPART 100 UNIT/ML 1 ML 10 ML VIAL SQ SCH ×4 (08:39→20:05)
[2017-12-10] MEDS: ENOXAPARIN 40 MG/0.4 ML SYRINGE SQ SCH (08:58)
[2017-12-10] MEDS: METOPROLOL TARTRATE 25 MG TAB PO SCH ×2 (08:59→20:02)
[2017-12-10] MEDS: LOSARTAN 50 MG TAB PO SCH (09:00)
[2017-12-10] MEDS: ANASTROZOLE 1 MG TAB PO SCH (09:00)
[2017-12-10] MEDS: DOCUSATE 100 MG CAP PO SCH ×2 (09:00→20:02)
[2017-12-10] MEDS: ASPIRIN 81 MG PO SCH (09:01)
[2017-12-10] MEDS: ALBUTEROL NEBULIZED 2.5 MG/3 ML INHALATION SCH ×4 (10:21→20:02)
--- NOTE | 2017-12-10 10:30 | P.CNPUL ---
History of Present Illness Consult date: 12/10/17 Requesting physician: Tamie Jackson Reason for consult: other (Critical care management) Chief complaint: Generalized weakness History of present illness: This is a very pleasant 72-year-old female patient who follows with Dr. Finn as her primary care physician. She has a history of coronary artery disease, right-sided breast cancer with previous mastectomy and chemotherapy residual lymphedema remains on Arimidex, diabetes mellitus, hyperlipidemia, hypertension, congenital absence of left kidney, shingles currently on acyclovir and [place] for pain control. She presented here to the emergency room yesterday with profound weakness, confusion and decreased urine output. No other symptoms. No fever, cough congestion. No nausea vomiting or diarrhea. Computed tomography scan of the brain revealed no acute intracranial abnormalities. Chest x-ray revealed evidence of cardiomegaly. Computed tomography scan of the chest revealed cardiomegaly but no acute thoracic process. There was noted multinodular goiter and absence of the left kidney with hypertrophy of the right kidney. Presenting sodium level was 96. Potassium 2.5. Chloride 57. She was admitted to the intensive care unit and initially on 3% normal saline which is currently stopped. We're consulted for critical care management. The patient is seen today in consultation in the ICU. She is awake and alert in no acute distress. There is somewhat of a language barrier. She does deny any pain or discomfort. She denies any shortness of breath. No dizziness or lightheadedness. No headache. Her current sodium level is 111. Potassium 3.0. Chloride 78. Bicarb 24. Anion gap 9. Creatinine 0.40. White count 9.3. Hemoglobin 13.6. Nephrology is on the case. She is currently on D5W at 70 mL's per hour. Good O2 saturations in the 90s on 2 L/m per nasal cannula. She remains afebrile. Hemodynamically stable. Review of Systems 14 point review of system was conducted. There is somewhat of a language barrier. Mainly negative other than as mentioned in the HPI. Past Medical History Past Medical History: Coronary Artery Disease (CAD), Cancer, Diabetes Mellitus, Eye Disorder, GERD/Reflux, Hyperlipidemia, Hypertension, Myocardial Infarction ( PR), Osteoarthritis (OA) Additional Past Medical History / Comment(s): Newly diagnosed shingelles infection, R breast cancer with surgery and chemo, R arm lymphedema, NIDDM type II, "mild" PR, osteoporosis, L eye macular pucker, born with one kidney, benign thyroid nodules. Last Myocardial Infarction Date:: ?2004 or 2005 History of Any Multi-Drug Resistant Organisms: None Reported Past Surgical History: Breast Surgery, Section Additional Past Surgical History / Comment(s): right mastectomy, thyroid nodules biopsied (benign), colonoscopy. Past Anesthesia/Blood Transfusion Reactions: No Reported Reaction Smoking Status: Never smoker - Past Family History Father History Unknown: Yes Additional Family Medical History / Comment(s): from complications from kidney failure d/t BPH Mother Additional Family Medical History / Comment(s): from diabetic complications Medications and Allergies Home Medications Medication Instructions Recorded Confirmed Type Anastrozole [Arimidex] 1 mg PO DAILY 10/28/17 12/09/17 History Ascorbic Acid [Vitamin C] 1,000 mg PO DAILY 10/28/17 12/09/17 History Aspirin 81 mg PO DAILY 10/28/17 12/09/17 History Atorvastatin [Lipitor] 40 mg PO HS 10/28/17 12/09/17 History Chlorthalidone [Hygroton] 25 mg PO DAILY 10/28/17 12/09/17 History Cholecalciferol (Vitamin D3) 2,000 unit PO DAILY 10/28/17 12/09/17 History [Vitamin D3] Glucosam/Bashir-Msm1/C/Vitaliy/Bosw 1 tab PO DAILY 10/28/17 12/09/17 History [Glucosamine-Chondroitin Tablet] Ibuprofen 200 - 800 mg PO Q6H PRN 10/28/17 12/09/17 History Losartan Potassium 100 mg PO DAILY 10/28/17 12/09/17 History Metoprolol Tartrate [Lopressor] 12.5 mg PO BID 10/28/17 12/09/17 History Risedronate Sodium [Actonel] 35 mg PO SA 10/28/17 12/09/17 History metFORMIN HCL [Glucophage] 500 mg PO DAILY 10/28/17 12/09/17 History valACYclovir HCL [Valtrex] 1,000 mg PO Q8HR #30 tab 12/04/17 12/09/17 Rx Atorvastatin [Lipitor] 40 mg PO HS 12/09/17 12/09/17 History Allergies Allergy/AdvReac Type Severity Reaction Status Date / Time No Known Allergies Allergy Verified 12/09/17 06:40 Physical Exam Vitals: Vital Signs Temp Pulse Resp BP Pulse Ox 12/10/17 10:00 71 30 H 160/75 100 12/10/17 09:00 80 27 H 154/82 100 12/10/17 08:00 97.8 F 81 28 H 152/73 100 12/10/17 07:00 72 19 164/88 100 12/10/17 06:00 71 17 141/75 100 12/10/17 05:00 68 19 150/74 100 12/10/17 04:00 98.6 F 66 24 148/74 100 12/10/17 03:00 67 22 161/79 100 12/10/17 02:00 69 18 168/79 100 12/10/17 01:00 84 24 157/81 100 12/10/17 00:00 98.2 F 85 20 143/67 100 12/09/17 23:00 87 24 140/64 100 12/09/17 22:00 94 20 136/66 100 12/09/17 21:10 96 12/09/17 21:00 104 H 22 152/69 96 12/09/17 20:59 99 12/09/17 20:15 92 23 178/89 99 12/09/17 20:00 90 23 178/89 98 12/09/17 18:51 97.2 F L 93 18 175/73 98 12/09/17 17:00 82 18 172/74 98 12/09/17 16:35 97.9 F 98 18 177/73 98 12/09/17 16:27 96 12/09/17 16:07 80 12/09/17 14:44 89 18 140/78 100 12/09/17 14:28 82 18 133/67 98 12/09/17 13:18 80 18 140/72 98 12/09/17 13:16 80 12/09/17 13:06 89 12/09/17 12:15 90 16 147/73 97 12/09/17 11:00 86 18 137/84 100 12/09/17 10:39 82 12/09/17 10:29 88 12/09/17 10:15 88 19 132/76 100 Intake and Output 12/09/17 12/10/17 12/10/17 22:59 06:59 14:59 Intake Total 170 1015 630 Output Total 1050 810 425 Balance -880 205 205 Intake: IV 170 1015 450 Desmopressin Inj 1 mcg In 50 Sodium Chloride 0.9% 50 ml @ 200 mls/hr IVPB ONCE ONE Rx#:[id number] Dextrose 5% in Water 1, 120 640 100 000 ml @ 70 mls/hr IV . [id number] [facility] Rx#:[id number] Potassium Phosphate 15 375 350 mmol In Sodium Chloride 0 .9% 250 ml @ 125 mls/hr IV Q2H [facility] Rx#:[id number] Oral 180 Output: Urine 1050 810 425 Other: Voiding Method Indwelling Catheter Indwelling Catheter Weight 52.6 kg GENERAL EXAM: Alert, comfortable in no apparent distress. HEAD: Normocephalic. EYES: Normal reaction of pupils, equal size. NOSE: Clear with pink turbinates. THROAT: No erythema or exudates. NECK: No masses, no JVD. CHEST: No chest wall deformity. LUNGS: Equal air entry with no crackles, wheeze, rhonchi or dullness. CVS: S1 and S2 normal with no audible murmur, regular rhythm. ABDOMEN: No hepatosplenomegaly, normal bowel sounds, no guarding or rigidity. SPINE: No scoliosis or deformity SKIN: Shingles CENTRAL NERVOUS SYSTEM: No focal deficits, tone is normal in all 4 extremities. EXTREMITIES: There is no peripheral edema. No clubbing, no cyanosis. Peripheral pulses are intact. Results - Laboratory Findings CBC and BMP: 12/10/17 04:10 12/10/17 04:10 PT/INR, D-dimer PT 9.9 sec (9.0-12.0) 12/09/17 04:11 INR 1.0 (<1.2) 12/09/17 04:11 Abnormal lab findings: Abnormal Labs 12/09/17 12/09/17 12/09/17 04:11 04:11 04:11 MCV 74.1 L D MCHC 38.5 H Monocytes # (Manual) 1.25 H Sodium 96 L* Potassium 2.5 L* Chloride 57 L* BUN Creatinine 0.40 L Glucose 170 H POC Glucose (mg/dL) Osmolality Calcium Phosphorus Total Bilirubin 1.6 H AST 69 H Total Creatine Kinase 554 H CK-MB (CK-2) 4.9 H* TSH Free T4 Urine Appearance Urine Protein Urine Ketones Amorphous Sediment 12/09/17 12/09/17 12/09/17 04:11 04:11 04:19 [facility] Monocytes # (Manual) Sodium Potassium Chloride BUN Creatinine Glucose POC Glucose (mg/dL) 174 H Osmolality 206 L* Calcium Phosphorus 1.7 L Total Bilirubin AST Total Creatine Kinase CK-MB (CK-2) TSH 0.302 L Free T4 2.86 H Urine Appearance Urine Protein Urine Ketones Amorphous Sediment 12/09/17 12/09/17 12/09/17 05:22 08:17 11:18 MCV [facility] Monocytes # (Manual) Sodium 106 L* Potassium 2.9 L* Chloride 70 L* BUN Creatinine 0.37 L Glucose 125 H POC Glucose (mg/dL) 157 H Osmolality Calcium 8.1 L Phosphorus Total Bilirubin AST Total Creatine Kinase CK-MB (CK-2) TSH Free T4 Urine Appearance Cloudy H Urine Protein Trace H Urine Ketones 1+ H Amorphous Sediment Rare H 12/09/17 12/09/17 12/09/17 14:08 14:08 14:08 MCV [facility] Monocytes # (Manual) Sodium 107 L* Potassium 2.6 L* Chloride 74 L* BUN Creatinine 0.40 L Glucose 133 H POC Glucose (mg/dL) Osmolality Calcium 8.1 L Phosphorus 1.0 L* Total Bilirubin AST Total Creatine Kinase CK-MB (CK-2) TSH 0.362 L Free T4 Urine Appearance Urine Protein Urine Ketones Amorphous Sediment 12/09/17 12/09/17 12/09/17 19:24 19:37 23:48 MCV [facility] Monocytes # (Manual) Sodium 109 L* 112 L* Potassium 3.3 L Chloride 75 L* 82 L BUN 6 L Creatinine 0.40 L 0.40 L Glucose 180 H 161 H POC Glucose (mg/dL) 214 H Osmolality Calcium Phosphorus Total Bilirubin AST Total Creatine Kinase CK-MB (CK-2) TSH Free T4 Urine Appearance Urine Protein Urine Ketones Amorphous Sediment 12/10/17 12/10/17 12/10/17 04:10 04:10 08:21 MCV 76.9 L MCHC Monocytes # (Manual) Sodium 111 L* Potassium 3.0 L* Chloride 78 L* BUN 6 L Creatinine 0.40 L Glucose 148 H POC Glucose (mg/dL) 179 H Osmolality Calcium 8.0 L Phosphorus 1.5 L Total Bilirubin AST Total Creatine Kinase CK-MB (CK-2) TSH Free T4 Urine Appearance Urine Protein Urine Ketones Amorphous Sediment - Diagnostic Findings Chest x-ray: image reviewed CT scan - chest: image reviewed Assessment and Plan Assessment: Impression: #1 Altered mental status, generalized weakness secondary to severe hyponatremia suspect secondary to chlorthalidone. Initial sodium level of 96 currently 111. Remains on D5W at 70 mL's per hour. #2 Hypokalemia presenting potassium level 2.5 currently 3.0. #3 Congenital absence of the left kidney. #4 History of right-sided breast cancer status post mastectomy and chemotherapy. Currently on Arimidex. #5 Coronary artery disease. #6 Hypertension. #7 Hyperlipidemia. #8 History of benign thyroid nodules. #9 Shingles treated with Valtrex in the outpatient setting. #10 Diabetes mellitus, type II. #11 Gastric esophageal reflux disease. #12 Osteoporosis. Plan: The patient was seen and evaluated by Dr. Pittman. She is currently stable from the pulmonary and critical care standpoint. We'll continue to gradually increase her sodium level which is currently at 111. She is on D5W at 70 mL's per hour per nephrology. Lovenox for DVT prophylaxis. We will continue to monitor her here in the intensive care unit. We'll continue to follow and make further recommendations based on her clinical status. I, the cosigning physician, performed a history & physical examination of the patient. Lungs sounds are clear. Maintaining good O2 saturations in the 90s on 2 L/m per nasal cannula. I discussed the assessment and plan of care with my nurse practitioner, Moraima Mcfarland. I attest to the above note as dictated by her. Time with Patient: Greater than 30
[2017-12-10 11:40] LABS: Anion Gap 10 mmol/L; Blood Urea Nitrogen 4 mg/dL (7-17); Calcium 7.6 mg/dL (8.4-10.2); Carbon Dioxide 23 mmol/L (22-30); Chloride 81 mmol/L (98-107); Glucose 129 mg/dL (74-99); Magnesium 1.9 mg/dL (1.6-2.3); Phosphorus 3.9 mg/dL (2.5-4.5); Potassium 3.5 mmol/L (3.5-5.1)
[2017-12-10 11:44] LABS: Sodium 114 mmol/L (137-145)
[2017-12-10 12:42] LABS: Glucose,Whole Blood 145 mg/dL (75-99)
--- NOTE | 2017-12-10 12:48 | P.PN ---
Subjective Progress Note Date: 12/10/17 Principal diagnosis: She is okay today is not complaining of any chest pain or shortness of breath does not appear to be confused No vomiting but still weak 10 systems has been reviewed all negative and positive as per hpi Vital Signs - 24 hr 12/09/17 12/09/17 12/09/17 13:06 13:16 13:18 Temperature Pulse Rate 89 80 80 Respiratory 18 Rate Blood Pressure 140/72 O2 Sat by Pulse 98 Oximetry 12/09/17 12/09/17 12/09/17 14:28 14:44 16:07 Temperature Pulse Rate 82 89 80 Respiratory 18 18 Rate Blood Pressure 133/67 140/78 O2 Sat by Pulse 98 100 Oximetry 12/09/17 12/09/17 12/09/17 16:27 16:35 17:00 Temperature 97.9 F Pulse Rate 96 98 82 Respiratory 18 18 Rate Blood Pressure 177/73 172/74 O2 Sat by Pulse 98 98 Oximetry 12/09/17 12/09/17 12/09/17 18:51 20:00 20:15 Temperature 97.2 F L Pulse Rate 93 90 92 Respiratory 18 23 23 Rate Blood Pressure 175/73 178/89 178/89 O2 Sat by Pulse 98 98 99 Oximetry 12/09/17 12/09/17 12/09/17 20:59 21:00 21:10 Temperature Pulse Rate 99 104 H 96 Respiratory 22 Rate Blood Pressure 152/69 O2 Sat by Pulse 96 Oximetry 12/09/17 12/09/17 12/10/17 22:00 23:00 00:00 Temperature 98.2 F Pulse Rate 94 87 85 Respiratory 20 24 20 Rate Blood Pressure 136/66 140/64 143/67 O2 Sat by Pulse 100 100 100 Oximetry 12/10/17 12/10/17 12/10/17 01:00 02:00 03:00 Temperature Pulse Rate 84 69 67 Respiratory 24 18 22 Rate Blood Pressure 157/81 168/79 161/79 O2 Sat by Pulse 100 100 100 Oximetry 12/10/17 12/10/17 12/10/17 04:00 05:00 06:00 Temperature 98.6 F Pulse Rate 66 68 71 Respiratory 24 19 17 Rate Blood Pressure 148/74 150/74 141/75 O2 Sat by Pulse 100 100 100 Oximetry 12/10/17 12/10/17 12/10/17 07:00 08:00 09:00 Temperature 97.8 F Pulse Rate 72 81 80 Respiratory 19 28 H 27 H Rate Blood Pressure 164/88 152/73 154/82 O2 Sat by Pulse 100 100 100 Oximetry 12/10/17 12/10/17 12/10/17 10:00 11:00 11:24 Temperature Pulse Rate 71 73 69 Respiratory 30 H 37 H Rate Blood Pressure 160/75 163/88 O2 Sat by Pulse 100 Oximetry 12/10/17 12/10/17 11:35 12:00 Temperature 97.5 F L Pulse Rate 66 72 Respiratory 26 H Rate Blood Pressure 150/72 O2 Sat by Pulse 98 Oximetry Laboratory Results - last 24 hr 12/09/17 12/09/17 12/09/17 14:08 14:08 14:08 WBC RBC Hgb Hct MCV MCH MCHC RDW Plt Count Neutrophils % Lymphocytes % Monocytes % Eosinophils % Basophils % Neutrophils # Lymphocytes # Monocytes # Eosinophils # Basophils # Hyperchromasia Sodium 107 L* Potassium 2.6 L* Chloride 74 L* Carbon Dioxide 26 Anion Gap 7 BUN 7 Creatinine 0.40 L Est GFR (CKD-EPI)AfAm >90 Est GFR (CKD-EPI)NonAf >90 Glucose 133 H POC Glucose (mg/dL) POC Glu [place] ID Calcium 8.1 L Phosphorus 1.0 L* Magnesium 2.0 TSH 0.362 L 12/09/17 12/09/17 12/09/17 19:24 19:37 23:48 WBC RBC Hgb Hct MCV MCH MCHC RDW Plt Count Neutrophils % Lymphocytes % Monocytes % Eosinophils % Basophils % Neutrophils # Lymphocytes # Monocytes # Eosinophils # Basophils # Hyperchromasia Sodium 109 L* 112 L* Potassium 3.3 L 4.9 Chloride 75 L* 82 L Carbon Dioxide 24 22 Anion Gap 10 8 BUN 6 L 7 Creatinine 0.40 L 0.40 L Est GFR (CKD-EPI)AfAm >90 >90 Est GFR (CKD-EPI)NonAf >90 >90 Glucose 180 H 161 H POC Glucose (mg/dL) 214 H POC Glu [place] ID Caro Aldana Calcium 8.4 8.4 Phosphorus 2.8 Magnesium 2.1 TSH 12/10/17 12/10/17 12/10/17 04:10 04:10 08:21 WBC 9.3 RBC 4.83 Hgb 13.6 Hct 37.1 MCV 76.9 L MCH 28.1 MCHC 36.5 RDW 13.6 Plt Count 383 Neutrophils % 75 Lymphocytes % 14 Monocytes % 9 Eosinophils % 0 Basophils % 0 Neutrophils # 7.0 Lymphocytes # 1.3 Monocytes # 0.9 Eosinophils # 0.0 Basophils # 0.0 Hyperchromasia Marked Sodium 111 L* Potassium 3.0 L* Chloride 78 L* Carbon Dioxide 24 Anion Gap 9 BUN 6 L Creatinine 0.40 L Est GFR (CKD-EPI)AfAm >90 Est GFR (CKD-EPI)NonAf >90 Glucose 148 H POC Glucose (mg/dL) 179 H POC Glu [place] ID Matich, Carol Calcium 8.0 L Phosphorus 1.5 L Magnesium 2.1 TSH 12/10/17 12/10/17 10:36 12:40 WBC RBC Hgb Hct MCV MCH MCHC RDW Plt Count Neutrophils % Lymphocytes % Monocytes % Eosinophils % Basophils % Neutrophils # Lymphocytes # Monocytes # Eosinophils # Basophils # Hyperchromasia Sodium 114 L* Potassium 3.5 Chloride 81 L Carbon Dioxide 23 Anion Gap 10 BUN 4 L Creatinine 0.34 L Est GFR (CKD-EPI)AfAm >90 Est GFR (CKD-EPI)NonAf >90 Glucose 129 H POC Glucose (mg/dL) 145 H POC Glu [place] ID Matich, Carol Calcium 7.6 L Phosphorus 3.9 Magnesium 1.9 TSH Metabolic encephalopathy -Likely due to CVA and hyponatremia currently patient is alert and oriented 3 and does not appear to be in distress Hyponatremia - appears euvolemic - Currently stable in management as per nephrology continue IV hydration - check TSH - seizure precautions - - nephrology consult - Hypokalemia, continue to replace - tele - Shingles - hold valtrex with current symptoms - pain control DM 2 -On sliding scale insulin will continue to monitor HTN urgency Resolved - Losartan, metoprolol HLD - statin GERD - PPI Hx of breast Ca - right lymphedema Osteoprosis - on bisphosphonate Anticipate discharge to 4 days Objective - Vital Signs Vital signs: Vital Signs Temp 97.5 F L 12/10/17 12:00 Pulse 72 12/10/17 12:00 Resp 26 H 12/10/17 12:00 BP 150/72 12/10/17 12:00 Pulse Ox 98 12/10/17 12:00 Intake & Output 12/09/17 12/10/17 12/10/17 18:59 06:59 18:59 Intake Total 1185 780 Output Total 2450 1260 825 Balance -2450 -75 -45 Weight 52.6 kg Intake: IV 1185 600 Desmopressin Inj 1 mcg In 50 Sodium Chloride 0.9% 50 ml @ 200 mls/hr IVPB ONCE ONE Rx#:[id number] Dextrose 5% in Water 1, 760 100 000 ml @ 70 mls/hr IV . [id number] [facility] Rx#:[id number] Potassium Phosphate 15 375 500 mmol In Sodium Chloride 0 .9% 250 ml @ 125 mls/hr IV Q2H [facility] Rx#:[id number] Oral 180 Output: Urine 2450 1260 825 Other: Voiding Method Indwelling Catheter - Labs CBC & Chem 7: 12/10/17 04:10 12/10/17 10:36 Labs: Abnormal Lab Results - Last 24 Hours (Table) 12/09/17 12/09/17 12/09/17 Range/Units 14:08 14:08 14:08 MCV (80.0-100.0) fL Sodium 107 L* (137-145) mmol/L Potassium 2.6 L* (3.5-5.1) mmol/L Chloride 74 L* (98-107) mmol/L BUN (7-17) mg/dL Creatinine 0.40 L (0.52-1.04) mg/dL Glucose 133 H (74-99) mg/dL POC Glucose (mg/dL) (75-99) mg/dL Calcium 8.1 L (8.4-10.2) mg/dL Phosphorus 1.0 L* (2.5-4.5) mg/dL TSH 0.362 L (0.465-4.680) mIU/L 12/09/17 12/09/17 12/09/17 Range/Units 19:24 19:37 23:48 MCV (80.0-100.0) fL Sodium 109 L* 112 L* (137-145) mmol/L Potassium 3.3 L (3.5-5.1) mmol/L Chloride 75 L* 82 L (98-107) mmol/L BUN 6 L (7-17) mg/dL Creatinine 0.40 L 0.40 L (0.52-1.04) mg/dL Glucose 180 H 161 H (74-99) mg/dL POC Glucose (mg/dL) 214 H (75-99) mg/dL Calcium (8.4-10.2) mg/dL Phosphorus (2.5-4.5) mg/dL TSH (0.465-4.680) mIU/L 12/10/17 12/10/17 12/10/17 Range/Units 04:10 04:10 08:21 MCV 76.9 L (80.0-100.0) fL Sodium 111 L* (137-145) mmol/L Potassium 3.0 L* (3.5-5.1) mmol/L Chloride 78 L* (98-107) mmol/L BUN 6 L (7-17) mg/dL Creatinine 0.40 L (0.52-1.04) mg/dL Glucose 148 H (74-99) mg/dL POC Glucose (mg/dL) 179 H (75-99) mg/dL Calcium 8.0 L (8.4-10.2) mg/dL Phosphorus 1.5 L (2.5-4.5) mg/dL TSH (0.465-4.680) mIU/L 12/10/17 Range/Units 10:36 MCV (80.0-100.0) fL Sodium 114 L* (137-145) mmol/L Potassium (3.5-5.1) mmol/L Chloride 81 L (98-107) mmol/L BUN 4 L (7-17) mg/dL Creatinine 0.34 L (0.52-1.04) mg/dL Glucose 129 H (74-99) mg/dL POC Glucose (mg/dL) (75-99) mg/dL Calcium 7.6 L (8.4-10.2) mg/dL Phosphorus (2.5-4.5) mg/dL TSH (0.465-4.680) mIU/L
[2017-12-10] MEDS: CHOLECALCIFEROL 1,000 UNIT TAB PO SCH (12:50)
[2017-12-10 13:53] LABS: Potassium 3.2 mmol/L (3.5-5.1)
[2017-12-10 16:49] LABS: Glucose,Whole Blood 196 mg/dL (75-99)
[2017-12-10] MEDS: POTASSIUM CHLORIDE ER 20 MEQ TAB.ER PO SCH ×2 (17:52→18:47)
[2017-12-10] MEDS: POTASSIUM CHLORIDE 20 MEQ in SODIUM CHLORIDE 0.9% 100 ML IVPB SCH ×2 (18:48→20:52)
--- NOTE | 2017-12-10 19:23 | PN ---
PROGRESS NOTE Patient is seen for followup for hyponatremia. She has been maintained on D5W secondary to continued rise in her serum sodium. Patient also received one dose of DDAVP to help slow the increase in sodium. She is currently eating. Her serum sodium has been at about 114 for the last 2 draws. I will discontinue the D5W and allow her serum sodium to rise now, since it has been more than 24 hours since admission. On examination, patient is comfortable, awake, not in any acute distress. Blood pressure is 145/75, heart rate 72 per minute. She is afebrile. EXAMINATION OF THE HEART: S1, S2. EXAMINATION OF LUNGS: Decreased breath sounds in the bases. No crackles or wheezing is heard. ABDOMEN: Soft, non-tender. Examination of lower extremities shows no significant edema. Patient does have a rash on the right upper chest and shoulder area. Labs from this morning show serum sodium 114, potassium 3.5, serum creatinine 0.34. Calcium was 7.6. ASSESSMENT: 1. Hyponatremia with some degree of hypovolemia as well as secondary to possible underlying syndrome of inappropriate antidiuretic hormone, as her urine osmolality was on the higher side. Serum sodium had been increasing rapidly; therefore D5W was started yesterday. Patient also received one dose of DDAVP. I will discontinue the D5 water and maintain her without any IV fluids, and if her sodium drops further, we will start her on normal saline; this saline challenge will diagnose any underlying SIADH. Patient is also advised to increase her protein intake, which I believe has been an issue with her as well, as he was admitted previously with severe hyponatremia, too. Patient does not consume a lot of meat or eggs and she is advised to increase her protein intake through vegetarian sources. 2. Breast cancer, status post right mastectomy and chemotherapy. 3. Congenital absence of left kidney. 4. Severe hypokalemia, currently being replaced. 5. Hypophosphatemia, also being replaced. 6. Shingles, started on Valtrex as outpatient. MMODL / IJN: [id number] /
[2017-12-10] MEDS: ATORVASTATIN 40 MG TAB PO SCH (20:02)
[2017-12-10 20:06] LABS: Glucose,Whole Blood 119 mg/dL (75-99)
[2017-12-10 22:35] LABS: Potassium 4.8 mmol/L (3.5-5.1)
[2017-12-11] MEDS: METOPROLOL TARTRATE 12.5 MG TAB PO SCH (02:52)
[2017-12-11 06:09] LABS: Glucose,Whole Blood 123 mg/dL (75-99)
[2017-12-11] MEDS: INSULIN ASPART 100 UNIT/ML 1 ML 10 ML VIAL SQ SCH ×4 (06:24→21:13)
[2017-12-11 07:09] LABS: ALT 37 U/L (9-52); AST 39 U/L (14-36); Albumin 3.3 g/dL (3.5-5.0); Alkaline Phosphatase 102 U/L (38-126); Anion Gap 6 mmol/L; Blood Urea Nitrogen 8 mg/dL (7-17); Calcium 8.4 mg/dL (8.4-10.2); Carbon Dioxide 20 mmol/L (22-30); Chloride 92 mmol/L (98-107); Glucose 123 mg/dL (74-99); Magnesium 2.3 mg/dL (1.6-2.3); Phosphorus 1.6 mg/dL (2.5-4.5); Potassium 5.9 mmol/L (3.5-5.1); Total Bilirubin 0.7 mg/dL (0.2-1.3); Total Protein 5.9 g/dL (6.3-8.2)
[2017-12-11 07:11] LABS: Sodium 118 mmol/L (137-145)
[2017-12-11 07:19] LABS: Basophils % (A) 0 %; Eosinophils # (A) 0.1 k/uL (0-0.7); Eosinophils % (A) 0 %; HCT 40.2 % (34.0-46.0); HGB 14.2 gm/dL (11.4-16.0); Lymphocytes # (A) 1.7 k/uL (1.0-4.8); Lymphocytes % (A) 17 %; MCH 28.4 pg (25.0-35.0); MCHC 35.4 g/dL (31.0-37.0); MCV 80.3 fL (80.0-100.0); Mean Platelet Volume 6.6; Monocytes # (A) 0.9 k/uL (0-1.0); Monocytes % (A) 9 %; Neutrophils # (A) 7.2 k/uL (1.3-7.7); Neutrophils % (A) 72 %; Platelet Count 424 k/uL (150-450); RDW 13.8 % (11.5-15.5); WBC 10.1 k/uL (3.8-10.6)
[2017-12-11] MEDS ORDERED: guaiFENesin SYRUP 100MG/5ML 200 MG/10 ML CUP PO PRN (08:04)
--- NOTE | 2017-12-11 08:25 | P.PN ---
Subjective Progress Note Date: 12/11/17 Principal diagnosis: Patient feels okay today complains of some cough no chest pain no shortness of breath that does not appear to be confused Patient feels okay no vomiting did not appear to be in distress' States that she is improving Vital Signs - 24 hr 12/10/17 12/10/17 12/10/17 09:00 10:00 11:00 Temperature Pulse Rate 80 71 73 Pulse Rate [ Bilateral Radial] Respiratory 27 H 30 H 37 H Rate Blood Pressure 154/82 160/75 163/88 Blood Pressure [Left Arm] O2 Sat by Pulse 100 100 Oximetry 12/10/17 12/10/17 12/10/17 11:24 11:35 12:00 Temperature 97.5 F L Pulse Rate 69 66 72 Pulse Rate [ Bilateral Radial] Respiratory 26 H Rate Blood Pressure 150/72 Blood Pressure [Left Arm] O2 Sat by Pulse 98 Oximetry 12/10/17 12/10/17 12/10/17 13:00 14:00 15:00 Temperature Pulse Rate 85 75 75 Pulse Rate [ Bilateral Radial] Respiratory 26 H 30 H 26 H Rate Blood Pressure 135/65 143/72 173/93 Blood Pressure [Left Arm] O2 Sat by Pulse 99 99 100 Oximetry 12/10/17 12/10/17 12/10/17 16:00 17:00 18:00 Temperature 97.4 F L Pulse Rate 72 74 76 Pulse Rate [ Bilateral Radial] Respiratory 24 26 H 28 H Rate Blood Pressure 145/75 142/73 148/74 Blood Pressure [Left Arm] O2 Sat by Pulse 100 100 100 Oximetry 12/10/17 12/10/17 12/11/17 19:00 20:00 00:00 Temperature 97.6 F 98.4 F Pulse Rate 81 79 Pulse Rate [ 75 Bilateral Radial] Respiratory 27 H 24 20 Rate Blood Pressure 171/89 150/80 Blood Pressure 132/65 [Left Arm] O2 Sat by Pulse 100 100 100 Oximetry 12/11/17 04:00 Temperature 98.3 F Pulse Rate Pulse Rate [ 91 Bilateral Radial] Respiratory 18 Rate Blood Pressure Blood Pressure 139/69 [Left Arm] O2 Sat by Pulse 96 Oximetry Constitutional: No acute distress, conversant, pleasant Eyes: Anicteric sclerae, moist conjunctiva, no lid-lag PERRLA ENMT: NC/AT Oropharynx clear, no erythema, exudates Neck: Supple, FROM, no masses, or JVD No carotid bruits No thyromegaly Lungs: Clear to auscultation Normal respiratory effort, no accessory muscle use Cardiovascular: Heart regular in rate and rhythm, No murmurs, gallops, or rubs No peripheral edema Abdominal: Soft Nontender, Skin: Normal temperature, tone, Extremities: No digital cyanosis No clubbing Pedal pulses intact and symmetrical Radial pulses intact and symmetrical Normal gait and station No calf tenderness Psychiatric:Alert and oriented to person, place and time Appropriate affect Intact judgement Neuro: Generalized weakness Assessment and plan Metabolic encephalopathy -Likely due to hyponatremia currently patient is alert and oriented 3 and does not appear to be in distress Overall stable sodium is 117 today improved from yesterday nephrology following Hyponatremia - appears euvolemic - Currently improving - check TSH - seizure precautions No evidence of any seizure activity during this hospital stay - - nephrology consult - Hypokalemia, replaced - tele - Shingles - hold valtrex with current symptoms - pain control DM 2 -On sliding scale insulin will continue to monitor HTN urgency Resolved - Continue current medications Losartan, metoprolol HLD - statin GERD - PPI Hx of breast Ca - right lymphedema Osteoprosis - on bisphosphonate Anticipate discharge to 3- 4 days Objective - Vital Signs Vital signs: Vital Signs Temp 98.3 F 12/11/17 04:00 Pulse 91 12/11/17 04:00 Resp 18 12/11/17 04:00 BP 139/69 12/11/17 04:00 Pulse Ox 96 12/11/17 04:00 Intake & Output 12/10/17 12/11/17 12/11/17 18:59 06:59 18:59 Intake Total 1145 100 Output Total 1831 1300 Balance -686 -1200 Weight 53.5 kg Intake: IV 965 100 Dextrose 5% in Water 1, 100 000 ml @ 40 mls/hr IV . Q24H [facility] Rx#:[id number] Potassium Chloride 20 meq 100 In Sodium Chloride 0.9% 100 ml @ 55 mls/hr IVPB Q2H [facility] Rx#:[id number] Potassium Phosphate 15 865 0 mmol In Sodium Chloride 0 .9% 250 ml @ 125 mls/hr IV Q2H [facility] Rx#:[id number] Oral 180 Output: Urine 1830 1300 Uretheral ([place]) 500 Stool 1 Other: Voiding Method Indwelling Catheter - Labs CBC & Chem 7: 12/11/17 06:05 12/11/17 06:05 Labs: Abnormal Lab Results - Last 24 Hours (Table) 12/10/17 12/10/17 12/10/17 Range/Units 08:21 10:36 12:40 Sodium 114 L* (137-145) mmol/L Potassium (3.5-5.1) mmol/L Chloride 81 L (98-107) mmol/L Carbon Dioxide (22-30) mmol/L BUN 4 L (7-17) mg/dL Creatinine 0.34 L (0.52-1.04) mg/dL Glucose 129 H (74-99) mg/dL POC Glucose (mg/dL) 179 H 145 H (75-99) mg/dL Calcium 7.6 L (8.4-10.2) mg/dL Phosphorus (2.5-4.5) mg/dL AST (14-36) U/L Total Protein (6.3-8.2) g/dL Albumin (3.5-5.0) g/dL 12/10/17 12/10/17 12/10/17 Range/Units 13:20 15:44 16:47 Sodium 114 L* 113 L* (137-145) mmol/L Potassium 3.2 L 3.0 L* (3.5-5.1) mmol/L Chloride 82 L 82 L (98-107) mmol/L Carbon Dioxide 21 L (22-30) mmol/L BUN (7-17) mg/dL Creatinine (0.52-1.04) mg/dL Glucose (74-99) mg/dL POC Glucose (mg/dL) 196 H (75-99) mg/dL Calcium (8.4-10.2) mg/dL Phosphorus (2.5-4.5) mg/dL AST (14-36) U/L Total Protein (6.3-8.2) g/dL Albumin (3.5-5.0) g/dL 12/10/17 12/10/17 12/11/17 Range/Units 20:05 22:01 06:03 Sodium 117 L* (137-145) mmol/L Potassium (3.5-5.1) mmol/L Chloride 87 L (98-107) mmol/L Carbon Dioxide (22-30) mmol/L BUN (7-17) mg/dL Creatinine (0.52-1.04) mg/dL Glucose (74-99) mg/dL POC Glucose (mg/dL) 119 H 123 H (75-99) mg/dL Calcium (8.4-10.2) mg/dL Phosphorus (2.5-4.5) mg/dL AST (14-36) U/L Total Protein (6.3-8.2) g/dL Albumin (3.5-5.0) g/dL 12/11/17 Range/Units 06:05 Sodium 118 L* (137-145) mmol/L Potassium 5.9 H (3.5-5.1) mmol/L Chloride 92 L (98-107) mmol/L Carbon Dioxide 20 L (22-30) mmol/L BUN (7-17) mg/dL Creatinine 0.40 L (0.52-1.04) mg/dL Glucose 123 H (74-99) mg/dL POC Glucose (mg/dL) (75-99) mg/dL Calcium (8.4-10.2) mg/dL Phosphorus 1.6 L (2.5-4.5) mg/dL AST 39 H (14-36) U/L Total Protein 5.9 L (6.3-8.2) g/dL Albumin 3.3 L (3.5-5.0) g/dL
[2017-12-11] MEDS: ALBUTEROL NEBULIZED 2.5 MG/3 ML INHALATION SCH ×4 (08:55→19:58)
[2017-12-11] MEDS: DOCUSATE 100 MG CAP PO SCH ×2 (09:19→20:39)
[2017-12-11] MEDS: ASPIRIN 81 MG PO SCH (09:19)
[2017-12-11] MEDS: LOSARTAN 50 MG TAB PO SCH (09:19)
[2017-12-11] MEDS: ANASTROZOLE 1 MG TAB PO SCH (09:20)
[2017-12-11] MEDS: METOPROLOL TARTRATE 25 MG TAB PO SCH ×2 (09:20→20:39)
[2017-12-11] MEDS: ENOXAPARIN 40 MG/0.4 ML SYRINGE SQ SCH (09:20)
[2017-12-11] MEDS ORDERED: DEXTROSE 50%-WATER 50 ML SYRINGE IVP STA (09:26)
[2017-12-11] MEDS ORDERED: INSULIN REGULAR 100 UNIT/ML VIAL SQ ONE (09:30)
[2017-12-11] MEDS: CHOLECALCIFEROL 1,000 UNIT TAB PO SCH (11:27)
[2017-12-11 11:47] LABS: Glucose,Whole Blood 273 mg/dL (75-99)
--- NOTE | 2017-12-11 13:58 | P.PN ---
Subjective Progress Note Date: 12/11/17 Principal diagnosis: Hyponatremia with altered mental status This is a very pleasant 72-year-old female patient who follows with Dr. Finn as her primary care physician. She has a history of coronary artery disease, right-sided breast cancer with previous mastectomy and chemotherapy residual lymphedema remains on Arimidex, diabetes mellitus, hyperlipidemia, hypertension, congenital absence of left kidney, shingles currently on acyclovir and [place] for pain control. She presented here to the emergency room yesterday with profound weakness, confusion and decreased urine output. No other symptoms. No fever, cough congestion. No nausea vomiting or diarrhea. Computed tomography scan of the brain revealed no acute intracranial abnormalities. Chest x-ray revealed evidence of cardiomegaly. Computed tomography scan of the chest revealed cardiomegaly but no acute thoracic process. There was noted multinodular goiter and absence of the left kidney with hypertrophy of the right kidney. Presenting sodium level was 96. Potassium 2.5. Chloride 57. She was admitted to the intensive care unit and initially on 3% normal saline which is currently stopped. We're consulted for critical care management. The patient is seen today in consultation in the ICU. She is awake and alert in no acute distress. There is somewhat of a language barrier. She does deny any pain or discomfort. She denies any shortness of breath. No dizziness or lightheadedness. No headache. Her current sodium level is 111. Potassium 3.0. Chloride 78. Bicarb 24. Anion gap 9. Creatinine 0.40. White count 9.3. Hemoglobin 13.6. Nephrology is on the case. She is currently on D5W at 70 mL's per hour. Good O2 saturations in the 90s on 2 L/m per nasal cannula. She remains afebrile. Hemodynamically stable. The patient is seen again today 12/11/2017 in follow-up on the selective care unit. She is awake and alert in no acute distress. She denies any shortness of breath, cough or congestion. She is maintaining O2 saturations in the 90s on room air. She's been afebrile. No chest pain or palpitations. She does have shingle pain on the right side of her neck. Her sodium is improved currently at 120 potassium 5.0. Creatinine 0.40. Objective - Vital Signs Vital signs: Vital Signs Temp 97.8 F 12/11/17 12:00 Pulse 70 12/11/17 12:00 Resp 16 12/11/17 12:00 BP 125/65 12/11/17 12:00 Pulse Ox 99 12/11/17 12:00 Intake & Output 12/10/17 12/11/17 12/11/17 18:59 06:59 18:59 Intake Total 1145 100 240 Output Total 1831 1300 400 Balance -686 -1200 -160 Weight 53.5 kg Intake: IV 965 100 Dextrose 5% in Water 1, 100 000 ml @ 40 mls/hr IV . Q24H [facility] Rx#:[id number] Potassium Chloride 20 meq 100 In Sodium Chloride 0.9% 100 ml @ 55 mls/hr IVPB Q2H [facility] Rx#:[id number] Potassium Phosphate 15 865 0 mmol In Sodium Chloride 0 .9% 250 ml @ 125 mls/hr IV Q2H [facility] Rx#:[id number] Oral 180 240 Output: Urine 1830 1300 400 Uretheral ([place]) 500 200 Stool 1 Other: Voiding Method Indwelling Catheter Indwelling Catheter - Exam GENERAL EXAM: Alert, comfortable in no apparent distress. HEAD: Normocephalic. EYES: Normal reaction of pupils, equal size. NOSE: Clear with pink turbinates. THROAT: No erythema or exudates. NECK: No masses, no JVD. CHEST: No chest wall deformity. LUNGS: Equal air entry with no crackles, wheeze, rhonchi or dullness. CVS: S1 and S2 normal with no audible murmur, regular rhythm. ABDOMEN: No hepatosplenomegaly, normal bowel sounds, no guarding or rigidity. SPINE: No scoliosis or deformity SKIN: Shingles CENTRAL NERVOUS SYSTEM: No focal deficits, tone is normal in all 4 extremities. EXTREMITIES: There is no peripheral edema. No clubbing, no cyanosis. Peripheral pulses are intact. - Labs CBC & Chem 7: 12/11/17 06:05 12/11/17 12:48 Labs: Abnormal Lab Results - Last 24 Hours (Table) 12/10/17 12/10/17 12/10/17 Range/Units 13:20 15:44 16:47 Sodium 114 L* 113 L* (137-145) mmol/L Potassium 3.2 L 3.0 L* (3.5-5.1) mmol/L Chloride 82 L 82 L (98-107) mmol/L Carbon Dioxide 21 L (22-30) mmol/L Creatinine (0.52-1.04) mg/dL Glucose (74-99) mg/dL POC Glucose (mg/dL) 196 H (75-99) mg/dL Phosphorus (2.5-4.5) mg/dL AST (14-36) U/L Total Protein (6.3-8.2) g/dL Albumin (3.5-5.0) g/dL 12/10/17 12/10/17 12/11/17 Range/Units 20:05 22:01 06:03 Sodium 117 L* (137-145) mmol/L Potassium (3.5-5.1) mmol/L Chloride 87 L (98-107) mmol/L Carbon Dioxide (22-30) mmol/L Creatinine (0.52-1.04) mg/dL Glucose (74-99) mg/dL POC Glucose (mg/dL) 119 H 123 H (75-99) mg/dL Phosphorus (2.5-4.5) mg/dL AST (14-36) U/L Total Protein (6.3-8.2) g/dL Albumin (3.5-5.0) g/dL 12/11/17 12/11/17 12/11/17 Range/Units 06:05 11:42 12:48 Sodium 118 L* 120 L* (137-145) mmol/L Potassium 5.9 H (3.5-5.1) mmol/L Chloride 92 L (98-107) mmol/L Carbon Dioxide 20 L (22-30) mmol/L Creatinine 0.40 L (0.52-1.04) mg/dL Glucose 123 H (74-99) mg/dL POC Glucose (mg/dL) 273 H (75-99) mg/dL Phosphorus 1.6 L (2.5-4.5) mg/dL AST 39 H (14-36) U/L Total Protein 5.9 L (6.3-8.2) g/dL Albumin 3.3 L (3.5-5.0) g/dL Assessment and Plan Assessment: Impression: #1 Altered mental status, generalized weakness secondary to severe hyponatremia suspect secondary to chlorthalidone. Initial sodium level of 96 currently 120. #2 Hypokalemia presenting potassium level 2.5 currently 5.0. #3 Congenital absence of the left kidney. #4 History of right-sided breast cancer status post mastectomy and chemotherapy. Currently on Arimidex. #5 Coronary artery disease. #6 Hypertension. #7 Hyperlipidemia. #8 History of benign thyroid nodules. #9 Shingles treated with Valtrex in the outpatient setting. #10 Diabetes mellitus, type II. #11 Gastric esophageal reflux disease. #12 Osteoporosis. Plan: The patient was seen and evaluated by Dr. Pittman. She is currently stable from the pulmonary and critical care standpoint. Current sodium 120. We will follow with the patient on as-needed basis. I, the cosigning physician, performed a history & physical examination of the patient. Lungs sounds are clear. Maintaining good O2 saturations in the 90s on room air. I discussed the assessment and plan of care with my nurse practitioner, Moraima Mcfarland. I attest to the above note as dictated by her.
[2017-12-11] MEDS: HYDROcodone/APAP 5-325MG 1 EACH TAB PO PRN (16:03)
[2017-12-11 16:51] LABS: Glucose,Whole Blood 80 mg/dL (75-99)
[2017-12-11] MEDS: ATORVASTATIN 40 MG TAB PO SCH (20:39)
--- NOTE | 2017-12-11 20:39 | PN ---
PROGRESS NOTE The patient is seen for followup for hyponatremia. The patient is lying in bed. She states she is eating better. She denies any significant complaints. Currently, she is not on any IV fluids. Serum sodium has been increasing. EXAMINATION: Blood pressure this morning was 143/63, heart rate of 70 per minute. Patient is afebrile. HEART: S1, S2. LUNGS: Bilateral breath sounds are heard. Abdomen is soft, nontender. Lower extremities show no evidence of edema. The patient has a rash on her right shoulder and upper chest area, which is currently improved. LABS: From this morning show serum sodium of 118, potassium was up at 5.9. ASSESSMENT: 1. Hyponatremia, hypovolemic as well as a component of possible underlying syndrome of inappropriate diuretic hormone secretion, as urine osmolality is slightly on the high side. The patient is not on any IV fluids. Her serum sodium is slowly improving, appropriately now. She did receive D5W and DDAVP initially. She can continue to eat with increased protein intake. We may need to restrict free water, depending upon the trend of her serum sodium level. 2. Hyperkalemia. The patient was severely hypokalemic and has been replaced aggressively. I will give her D50 and insulin and repeat another serum potassium level. She had been severely low previously. 3. Hypertension, currently controlled. 4. Diabetes type 2. Avoid high blood sugars which can further worsen the hyperkalemia. PLAN: Repeat sodium and potassium levels this afternoon. Continue off of all IV fluids and continue to encourage increased oral intake. MMODL / IJN: [id number] /
[2017-12-11 20:51] LABS: Glucose,Whole Blood 204 mg/dL (75-99)
[2017-12-12 05:56] LABS: Glucose,Whole Blood 124 mg/dL (75-99)
[2017-12-12] MEDS: INSULIN ASPART 100 UNIT/ML 1 ML 10 ML VIAL SQ SCH ×4 (05:59→22:23)
[2017-12-12] MEDS: LOSARTAN 50 MG TAB PO SCH (07:41)
[2017-12-12] MEDS: ENOXAPARIN 40 MG/0.4 ML SYRINGE SQ SCH (07:41)
[2017-12-12] MEDS: ASPIRIN 81 MG PO SCH (07:42)
[2017-12-12] MEDS: ANASTROZOLE 1 MG TAB PO SCH (07:42)
[2017-12-12] MEDS: METOPROLOL TARTRATE 25 MG TAB PO SCH ×2 (07:42→20:03)
[2017-12-12] MEDS: DOCUSATE 100 MG CAP PO SCH ×2 (07:42→20:03)
[2017-12-12] MEDS: CHOLECALCIFEROL 1,000 UNIT TAB PO SCH (07:42)
[2017-12-12] MEDS: ALBUTEROL NEBULIZED 2.5 MG/3 ML INHALATION SCH ×4 (07:52→19:31)
[2017-12-12 09:57] LABS: Anion Gap 10 mmol/L; Blood Urea Nitrogen 13 mg/dL (7-17); Calcium 8.5 mg/dL (8.4-10.2); Carbon Dioxide 21 mmol/L (22-30); Chloride 91 mmol/L (98-107); Glucose 164 mg/dL (74-99); Potassium 4.3 mmol/L (3.5-5.1); Sodium 122 mmol/L (137-145)
[2017-12-12 11:31] LABS: Glucose,Whole Blood 117 mg/dL (75-99)
--- NOTE | 2017-12-12 11:53 | P.PN ---
Subjective Progress Note Date: 12/12/17 Principal diagnosis: Shingles, hyponatremia Progress note dated 12/12/2017 This is a 72-year-old Palestinian female. She came with complaints of very low sodium. The patient has been receiving hydration. Doing better. In addition, she came in with significant shingles involving the right shoulder and right upper extremity area. She's been afebrile. Her breathing is excellent. No chest pain or chest discomfort. Today sodium is up to 122. When she initially presented to the emergency room, she has profound weakness confusion and decreased urine output. Ataxia what brought her in. Those have all been reversed. Objective - Vital Signs Vital signs: Vital Signs Temp 97.5 F L 12/12/17 11:40 Pulse 90 12/12/17 11:40 Resp 18 12/12/17 11:40 BP 119/65 12/12/17 11:40 Pulse Ox 98 12/12/17 11:40 Intake & Output 12/11/17 12/12/17 12/12/17 18:59 06:59 18:59 Intake Total 240 237 Output Total 401 1 302 Balance -161 -1 -65 Weight 46.9 kg Intake: Oral 240 237 Output: Urine 400 300 Uretheral ([place]) 200 Stool 1 1 2 Other: Voiding Method Indwelling Catheter Toilet Toilet # Voids 1 - Exam No acute distress, oriented 3. HEENT examination is grossly unremarkable. Mucous membranes are moist. No oral lesions. Neck supple. Full range of motion. No adenopathy thyromegaly or neck vein distention. Cardiovascular examination reveals regular rhythm rate. S1-S2 normal. No S3 or S4. No discernible murmur noted. Lungs reveal clear breath sounds. Her sounds are equal bilaterally. No adventitious lung sounds including wheezes rhonchi or crackles. Abdomen soft bowel sounds are heard. No masses or tenderness. Extremities are intact. Shingles outbreak involving the right shoulder and right upper extremity area. This area is improved.. Skin is positive for typical shingles outbreak. Neurologic examination is brief but nonfocal. - Labs CBC & Chem 7: 12/11/17 06:05 12/12/17 09:24 Labs: Abnormal Lab Results - Last 24 Hours (Table) 12/11/17 12/11/17 12/11/17 Range/Units 12:48 20:50 21:02 Sodium 120 L* 119 L* (137-145) mmol/L Chloride (98-107) mmol/L Carbon Dioxide (22-30) mmol/L Creatinine (0.52-1.04) mg/dL Glucose (74-99) mg/dL POC Glucose (mg/dL) 204 H (75-99) mg/dL 12/12/17 12/12/17 12/12/17 Range/Units 05:53 09:24 11:27 Sodium 122 L (137-145) mmol/L Chloride 91 L (98-107) mmol/L Carbon Dioxide 21 L (22-30) mmol/L Creatinine 0.48 L (0.52-1.04) mg/dL Glucose 164 H (74-99) mg/dL POC Glucose (mg/dL) 124 H 117 H (75-99) mg/dL Assessment and Plan Assessment: Assessment Mental status changes, likely secondary to hyponatremia, likely caused by chlorthalidone. Hypokalemia, resolved Congenital absence of the left kidney History of right-sided breast cancer, status post mastectomy and chemotherapy CAD Hypertension Hyperlipidemia History of benign thyroid nodules Shingles, treated with Valtrex Diabetes mellitus GERD Osteoporosis Recent admission for bronchitis Plan: Plan dated 12/12/2017 The patient's doing well. We'll continue to follow. Additional recommendations are made. From the pulmonary standpoint she is stable. Could be discharged home. Sodium today is up to 122. We'll continue to follow. Time with Patient: Less than 30
--- NOTE | 2017-12-12 13:53 | P.PN ---
Subjective Progress Note Date: 12/12/17 Principal diagnosis: Confusion Patient is back to her baseline mental status, was asking for medication for cough this morning. Still having pain in the right neck/chest area Objective - Vital Signs Vital signs: Vital Signs Temp 97.5 F L 12/12/17 11:40 Pulse 90 12/12/17 11:40 Resp 18 12/12/17 11:40 BP 119/65 12/12/17 11:40 Pulse Ox 98 12/12/17 11:40 Intake & Output 12/11/17 12/12/17 12/12/17 18:59 06:59 18:59 Intake Total 240 237 Output Total 401 1 302 Balance -161 -1 -65 Weight 46.9 kg Intake: Oral 240 237 Output: Urine 400 300 Uretheral ([place]) 200 Stool 1 1 2 Other: Voiding Method Indwelling Catheter Toilet Toilet # Voids 1 - Exam Constitutional: No acute distress, conversant, pleasant Eyes: Anicteric sclerae, moist conjunctiva, no lid-lag PERRLA ENMT: NC/AT Oropharynx clear, no erythema, exudates Neck: Supple, FROM, no masses, or JVD No carotid bruits No thyromegaly Lungs: Clear to auscultation Normal respiratory effort, no accessory muscle use Cardiovascular: Heart regular in rate and rhythm, No murmurs, gallops, or rubs No peripheral edema Abdominal: Soft Nontender, Skin: Normal temperature, tone, Extremities: No digital cyanosis No clubbing Pedal pulses intact and symmetrical Radial pulses intact and symmetrical Normal gait and station No calf tenderness Psychiatric:Alert and oriented to person, place and time Appropriate affect Intact judgement Neuro: Generalized weakness - Labs CBC & Chem 7: 12/11/17 06:05 12/12/17 09:24 Labs: Abnormal Lab Results - Last 24 Hours (Table) 12/11/17 12/11/17 12/12/17 Range/Units 20:50 21:02 05:53 Sodium 119 L* (137-145) mmol/L Chloride (98-107) mmol/L Carbon Dioxide (22-30) mmol/L Creatinine (0.52-1.04) mg/dL Glucose (74-99) mg/dL POC Glucose (mg/dL) 204 H 124 H (75-99) mg/dL 12/12/17 12/12/17 Range/Units 09:24 11:27 Sodium 122 L (137-145) mmol/L Chloride 91 L (98-107) mmol/L Carbon Dioxide 21 L (22-30) mmol/L Creatinine 0.48 L (0.52-1.04) mg/dL Glucose 164 H (74-99) mg/dL POC Glucose (mg/dL) 117 H (75-99) mg/dL Assessment and Plan Plan: Metabolic encephalopathy -Likely due to hyponatremia -Resolved -Na improving Hyponatremia -Likely secondary to chlorthalidone plus an SIADH component -Currently improving Hypothyroidism: TSH low and free T4 high Need outpatient workup Shingles Pain control DM 2 On sliding scale insulin will continue to monitor HTN urgency Resolved Continue current medications Losartan, metoprolol HLD - statin GERD - PPI Osteoprosis - on bisphosphonate Anticipate discharge to 2 days
[2017-12-12 13:58] VITALS: BMI 22.4
--- NOTE | 2017-12-12 14:10 | PN ---
PROGRESS NOTE Patient is seen for followup for hyponatremia. She is currently lying in bed. She is comfortable, not in any acute distress. Patient is eating better. Her sodium last night had decreased from 120 to 119. This morning it is up at 122 again. She denies any significant complaints. There was a component of hypovolemia, which has improved and then patient was maintained on D5W for a short period of time to avoid rapid increase in serum sodium levels. At this time, we are more than 2 days from initial admission and we can proceed with more rapid correction. I will start her on saline as a challenge and monitor her sodium. PHYSICAL EXAMINATION: Blood pressure is 109/59, heart rate 70 per minute. She is afebrile. Examination of the heart, S1, S2. Examination of the lungs, bilateral breath sounds are heard. Abdomen is soft, nontender. Examination of the lower extremities showed no evidence of edema. [employer] exam is grossly intact. LABS: Show sodium 122, potassium 4.3, serum creatinine 0.48. ASSESSMENT: 1. Hyponatremia. Initially hypovolemic, currently not hypovolemic anymore. Currently off of D5W, which was started to avoid rapid increase in serum sodium level. Continue to encourage increased oral intake. I will start saline at 50 mL an hour and repeat a serum sodium in about 4 hours. If she drops with the saline, then we confirmed diagnosis of SIADH. Otherwise, patient will probably benefit from low- dose sodium chloride tabs and free water restriction as well. 2. Altered mentation secondary to hyponatremia, currently improved. 3. Hypertension, fairly well-controlled. 4. Shingles, maintained on status post acyclovir. PLAN: Start saline at 50 mL an hour and repeat sodium in about 4 hours. MMODL / IJN: [id number] /
[2017-12-12] MEDS: SODIUM CHLORIDE 0.9% 1,000 ML IV SCH (14:59)
[2017-12-12 16:37] LABS: Glucose,Whole Blood 170 mg/dL (75-99)
[2017-12-12] MEDS: ATORVASTATIN 40 MG TAB PO SCH (20:03)
[2017-12-12 22:24] LABS: Glucose,Whole Blood 96 mg/dL (75-99)
[2017-12-13] MEDS ORDERED: FUROSEMIDE 10 MG/ML 2 ML VIAL IV ONE (00:47)
[2017-12-13 06:52] LABS: Anion Gap 11 mmol/L; Blood Urea Nitrogen 10 mg/dL (7-17); Calcium 8.1 mg/dL (8.4-10.2); Carbon Dioxide 21 mmol/L (22-30); Chloride 94 mmol/L (98-107); Glucose 122 mg/dL (74-99); Potassium 3.4 mmol/L (3.5-5.1); Sodium 126 mmol/L (137-145)
[2017-12-13] MEDS: ALBUTEROL NEBULIZED 2.5 MG/3 ML INHALATION SCH ×4 (07:00→20:12)
[2017-12-13] MEDS: INSULIN ASPART 100 UNIT/ML 1 ML 10 ML VIAL SQ SCH ×4 (07:46→21:08)
[2017-12-13 07:47] LABS: Glucose,Whole Blood 138 mg/dL (75-99)
[2017-12-13] MEDS: SODIUM CHLORIDE 0.9% 1,000 ML IV SCH (07:47)
[2017-12-13] MEDS ORDERED: FUROSEMIDE 10 MG/ML 2 ML VIAL IV STA (08:17)
[2017-12-13] MEDS ORDERED: TOLVAPTAN 15 MG 1/2 TABLET PO ONE (08:18)
[2017-12-13] MEDS: ANASTROZOLE 1 MG TAB PO SCH (08:22)
[2017-12-13] MEDS: ASPIRIN 81 MG PO SCH (08:22)
[2017-12-13] MEDS: DOCUSATE 100 MG CAP PO SCH ×2 (08:22→20:20)
[2017-12-13] MEDS: METOPROLOL TARTRATE 25 MG TAB PO SCH ×2 (08:22→20:20)
[2017-12-13] MEDS: LOSARTAN 50 MG TAB PO SCH (08:22)
[2017-12-13] MEDS: ENOXAPARIN 40 MG/0.4 ML SYRINGE SQ SCH (08:22)
[2017-12-13] MEDS ORDERED: POTASSIUM CHLORIDE ER 20 MEQ TAB.ER PO STA (09:14)
[2017-12-13 12:13] LABS: Glucose,Whole Blood 110 mg/dL (75-99)
[2017-12-13] MEDS: CHOLECALCIFEROL 1,000 UNIT TAB PO SCH (12:21)
--- NOTE | 2017-12-13 13:04 | PN ---
PROGRESS NOTE The patient is seen for followup for hyponatremia. The patient was admitted to the hospital with a serum sodium of 96 when she had a started to develop mental status changes. The patient was initially treated with 3% saline following which it was discontinued and patient's serum sodium continued to increase on its own. She was given D5W and one dose of DDAVP to slow down the increase. Yesterday I had started saline. However, the serum sodium did not change with the saline. I gave her one dose of Lasix and this morning it is up to 126. The patient had a urine osmolality of 357, which is slightly on the higher side, and she may have underlying SIADH. The patient is maintained on fluid restriction. I will give her one dose of tolvaptan as well today. PHYSICAL EXAMINATION: On examination, blood pressure is 140/61, heart rate 80 per minute. She is afebrile. EXAMINATION OF THE HEART: S1, S2. EXAMINATION OF THE LUNGS: Bilateral breath sounds are heard. Abdomen is soft, nontender. Examination of the lower extremities shows no significant edema. 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 Rash on the right upper shoulder is improving. LABS: Labs show sodium 126, potassium 3.4, BUN 10, serum creatinine 0.4. ASSESSMENT: 1. Hyponatremia, initially mildly hypovolemic currently looks more like SIADH. The serum sodium did not improve with saline challenge. Currently, the fluids are discontinued. The patient received one dose of tolvaptan, which should hasten the increase in serum sodium level. 2. Hypokalemia. Will replace. 3. Hypertension currently fair controlled. May continue current medications. PLAN: Patient may need another dose of tolvaptan tomorrow. I am reluctant to add sodium chloride tabs given her hypertension history. MMODL / IJN: [id number] /
--- NOTE | 2017-12-13 15:10 | P.PN ---
Subjective Progress Note Date: 12/13/17 Principal diagnosis: Confusion No complaints Objective - Vital Signs Vital signs: Vital Signs Temp 97.5 F L 12/13/17 12:00 Pulse 95 12/13/17 12:00 Resp 16 12/13/17 12:00 BP 147/78 12/13/17 12:00 Pulse Ox 100 12/13/17 12:00 Intake & Output 12/12/17 12/13/17 12/13/17 18:59 06:59 18:59 Intake Total 1074 640 Output Total 603 400 Balance 471 -400 640 Weight 46.9 kg Intake: Intake, IV Titration 640 Amount Sodium Chloride 0.9% 1, 640 000 ml @ 80 mls/hr IV . [id number] [facility] Rx#:[id number] Oral 1074 Output: Urine 600 400 Stool 3 Other: Voiding Method Toilet Toilet # Voids 1 1 3 - Exam Constitutional: No acute distress, conversant, pleasant Eyes: Anicteric sclerae, moist conjunctiva, no lid-lag PERRLA ENMT: NC/AT Oropharynx clear, no erythema, exudates Neck: Supple, FROM, no masses, or JVD No carotid bruits No thyromegaly Lungs: Clear to auscultation Normal respiratory effort, no accessory muscle use Cardiovascular: Heart regular in rate and rhythm, No murmurs, gallops, or rubs No peripheral edema Abdominal: Soft Nontender, Skin: Normal temperature, tone, Extremities: No digital cyanosis No clubbing Pedal pulses intact and symmetrical Radial pulses intact and symmetrical Normal gait and station No calf tenderness Psychiatric:Alert and oriented to person, place and time Appropriate affect Intact judgement Neuro: Generalized weakness - Labs CBC & Chem 7: 12/11/17 06:05 12/13/17 05:36 Labs: Abnormal Lab Results - Last 24 Hours (Table) 12/12/17 12/12/17 12/12/17 Range/Units 16:17 17:08 21:56 Sodium 122 L 122 L (137-145) mmol/L Potassium (3.5-5.1) mmol/L Chloride (98-107) mmol/L Carbon Dioxide (22-30) mmol/L Creatinine (0.52-1.04) mg/dL Glucose (74-99) mg/dL POC Glucose (mg/dL) 170 H (75-99) mg/dL Calcium (8.4-10.2) mg/dL 12/13/17 12/13/17 12/13/17 Range/Units 05:36 07:36 11:29 Sodium 126 L (137-145) mmol/L Potassium 3.4 L (3.5-5.1) mmol/L Chloride 94 L (98-107) mmol/L Carbon Dioxide 21 L (22-30) mmol/L Creatinine 0.40 L (0.52-1.04) mg/dL Glucose 122 H (74-99) mg/dL POC Glucose (mg/dL) 138 H 110 H (75-99) mg/dL Calcium 8.1 L (8.4-10.2) mg/dL Assessment and Plan Plan: Metabolic encephalopathy -Likely due to hyponatremia -Resolved -Na improving Hyponatremia -Likely secondary to chlorthalidone -Currently improving -Repeat BMP in am Hypokalemia: Replacing Hypothyroidism: TSH low and free T4 high Need outpatient workup Shingles Pain control DM 2 On sliding scale insulin will continue to monitor HTN urgency Resolved Continue current medications Losartan, metoprolol HLD - statin GERD - PPI Osteoprosis - on bisphosphonate Anticipate discharge to 2 days
[2017-12-13] MEDS ORDERED: DEXTROSE 5% IN WATER 1,000 ML IV SCH (16:00)
[2017-12-13 17:00] LABS: Glucose,Whole Blood 148 mg/dL (75-99)
[2017-12-13] MEDS: ATORVASTATIN 40 MG TAB PO SCH (20:20)
[2017-12-13 21:23] LABS: Glucose,Whole Blood 122 mg/dL (75-99)
[2017-12-14] MEDS ORDERED: RISEDRONATE SODIUM 35 MG PO SCH (06:30)
[2017-12-14] MEDS: ALBUTEROL NEBULIZED 2.5 MG/3 ML INHALATION SCH ×4 (06:53→21:33)
[2017-12-14 07:04] LABS: Glucose,Whole Blood 114 mg/dL (75-99)
[2017-12-14] MEDS: INSULIN ASPART 100 UNIT/ML 1 ML 10 ML VIAL SQ SCH ×4 (07:05→21:47)
[2017-12-14] MEDS: ANASTROZOLE 1 MG TAB PO SCH (08:06)
[2017-12-14] MEDS: ASPIRIN 81 MG PO SCH (08:06)
[2017-12-14] MEDS: DOCUSATE 100 MG CAP PO SCH ×2 (08:06→20:28)
[2017-12-14] MEDS: ENOXAPARIN 40 MG/0.4 ML SYRINGE SQ SCH (08:07)
[2017-12-14] MEDS: LOSARTAN 50 MG TAB PO SCH (08:07)
[2017-12-14] MEDS: METOPROLOL TARTRATE 25 MG TAB PO SCH ×2 (08:07→20:26)
[2017-12-14 08:29] LABS: Anion Gap 11 mmol/L; Blood Urea Nitrogen 8 mg/dL (7-17); Calcium 8.9 mg/dL (8.4-10.2); Carbon Dioxide 25 mmol/L (22-30); Chloride 91 mmol/L (98-107); Glucose 136 mg/dL (74-99); Potassium 3.8 mmol/L (3.5-5.1); Sodium 127 mmol/L (137-145)
--- NOTE | 2017-12-14 08:31 | P.PN ---
Subjective Progress Note Date: 12/14/17 Principal diagnosis: hyponatremia 72 y/o female that was admitted with severe hyponatremia(96). Patient has been treated with 3% saline. Yesterday was given tolvaptan. She denies nausea, vominting. good appetite. Objective - Vital Signs Vital signs: Vital Signs Temp 97.2 F L 12/14/17 04:00 Pulse 108 H 12/14/17 04:00 Resp 16 12/14/17 04:00 BP 165/81 12/14/17 04:00 Pulse Ox 97 12/14/17 04:00 Intake & Output 12/13/17 12/14/17 12/14/17 18:59 06:59 18:59 Intake Total 1360 360 480 Output Total 400 Balance 1360 -40 480 Weight 46.4 kg Intake: Intake, IV Titration 940 Amount Dextrose 5% in Water 1, 300 000 ml @ 100 mls/hr IV . Q10H [facility] Rx#:[id number] Sodium Chloride 0.9% 1, 640 000 ml @ 80 mls/hr IV . [id number] [facility] Rx#:[id number] Oral 420 360 480 Output: Urine 400 Other: Voiding Method Toilet # Voids 2 1 - Exam gen:alert and oriented lungs:clear to auscultation heart:s1s2 abdomen:soft and depressible,non tender ext:no edema - Labs CBC & Chem 7: 12/11/17 06:05 12/15/17 06:24 Labs: Abnormal Lab Results - Last 24 Hours (Table) 12/13/17 12/13/17 12/13/17 Range/Units 11:29 14:06 16:55 Sodium 134 L (137-145) mmol/L POC Glucose (mg/dL) 110 H 148 H (75-99) mg/dL 12/13/17 12/13/17 12/14/17 Range/Units 20:05 20:58 00:51 Sodium 124 L 123 L (137-145) mmol/L POC Glucose (mg/dL) 122 H (75-99) mg/dL 12/14/17 Range/Units 06:50 Sodium (137-145) mmol/L POC Glucose (mg/dL) 114 H (75-99) mg/dL Assessment and Plan (1) Hyponatremia Narrative/Plan: Discussed with Dr Ellis. Will just monitor for now. Current Visit: Yes Status: Acute Code(s): E87.1 - HYPO-OSMOLALITY AND HYPONATREMIA SNOMED Code(s): 90486954 (2) Hypertension Narrative/Plan: on losartan and atenolol off chlorthalidone Current Visit: Yes Status: Acute Code(s): I10 - ESSENTIAL (PRIMARY) HYPERTENSION SNOMED Code(s): 04685557 (3) Diabetes mellitus Narrative/Plan: currently on sliding scale of insulin off metformin controlled Current Visit: Yes Status: Acute Code(s): E11.9 - TYPE 2 DIABETES MELLITUS WITHOUT COMPLICATIONS SNOMED Code(s): 91820077 (4) Hyperlipidemia Narrative/Plan: lipitor Current Visit: Yes Status: Acute Code(s): E78.5 - HYPERLIPIDEMIA, UNSPECIFIED SNOMED Code(s): 13332737
[2017-12-14] MEDS ORDERED: TOLVAPTAN 15 MG 1/2 TABLET PO ONE (09:00)
--- NOTE | 2017-12-14 09:05 | P.PN ---
Subjective Patient is seen in follow-up for hyponatremia. Yesterday her sodium went up to 134 with 1 dose of Lasix. She was subsequently given D5W and the sodium dropped down to 124 in the evening. All IV fluids were discontinued and sodium level is 127 this morning. She is currently resting in bed. Denies any chest pain or shortness of breath. Oral intake is gradually improving. Admits to good urine output. Vital signs are stable. General: The patient appeared well nourished and normally developed. HEENT: Head exam is unremarkable. Neck is without jugular venous distension. LUNGS: Lungs are clear to auscultation and percussion. Breath sounds decreased. HEART: Rate and Rhythm are regular. First and second heart sounds normal. No murmurs, rubs or gallops. ABDOMEN: Abdominal exam reveals normal bowel sounds. Non-tender and non- distended. No evidence of peritonitis. EXTREMITITES: No clubbing, cyanosis, or edema. Objective - Vital Signs Vital signs: Vital Signs Temp 97.2 F L 12/14/17 04:00 Pulse 108 H 12/14/17 04:00 Resp 16 12/14/17 04:00 BP 165/81 12/14/17 04:00 Pulse Ox 97 12/14/17 04:00 Intake & Output 12/13/17 12/14/17 12/14/17 18:59 06:59 18:59 Intake Total 1360 360 480 Output Total 400 Balance 1360 -40 480 Weight 46.4 kg Intake: Intake, IV Titration 940 Amount Dextrose 5% in Water 1, 300 000 ml @ 100 mls/hr IV . Q10H [facility] Rx#:[id number] Sodium Chloride 0.9% 1, 640 000 ml @ 80 mls/hr IV . [id number] [facility] Rx#:[id number] Oral 420 360 480 Output: Urine 400 Other: Voiding Method Toilet # Voids 2 1 - Labs CBC & Chem 7: 12/11/17 06:05 12/14/17 06:29 Labs: Abnormal Lab Results - Last 24 Hours (Table) 12/13/17 12/13/17 12/13/17 Range/Units 11:29 14:06 16:55 Sodium 134 L (137-145) mmol/L Chloride (98-107) mmol/L Creatinine (0.52-1.04) mg/dL Glucose (74-99) mg/dL POC Glucose (mg/dL) 110 H 148 H (75-99) mg/dL 12/13/17 12/13/17 12/14/17 Range/Units 20:05 20:58 00:51 Sodium 124 L 123 L (137-145) mmol/L Chloride (98-107) mmol/L Creatinine (0.52-1.04) mg/dL Glucose (74-99) mg/dL POC Glucose (mg/dL) 122 H (75-99) mg/dL 12/14/17 12/14/17 Range/Units 06:29 06:50 Sodium 127 L (137-145) mmol/L Chloride 91 L (98-107) mmol/L Creatinine 0.43 L (0.52-1.04) mg/dL Glucose 136 H (74-99) mg/dL POC Glucose (mg/dL) 114 H (75-99) mg/dL Assessment and Plan Plan: Assessment: #1. Hyponatremia which was initially hypovolemic in nature and did improve with IV hydration. 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 She was also taking chlorthalidone as an outpatient which is currently held. Sodium level up to 127 today. Her urine is now quite dilute which is expected after getting Lasix. #2. Hypokalemia status post placement. #3. Benign hypertension. Controlled. Plan: Continue to hold off on all IV fluids. Maintain fluid restriction. Encouraged oral intake, particularly protein. Repeat sodium level at 5 PM today. Maintain current antihypertensives.
[2017-12-14 12:24] LABS: Glucose,Whole Blood 112 mg/dL (75-99)
[2017-12-14] MEDS: CHOLECALCIFEROL 1,000 UNIT TAB PO SCH (12:33)
[2017-12-14 16:39] LABS: Glucose,Whole Blood 125 mg/dL (75-99)
[2017-12-14] MEDS: ATORVASTATIN 40 MG TAB PO SCH (20:26)
[2017-12-14 21:36] LABS: Glucose,Whole Blood 94 mg/dL (75-99)
[2017-12-15] MEDS: INSULIN ASPART 100 UNIT/ML 1 ML 10 ML VIAL SQ SCH ×4 (06:34→21:38)
[2017-12-15 06:36] LABS: Glucose,Whole Blood 122 mg/dL (75-99)
[2017-12-15 07:12] LABS: Anion Gap 6 mmol/L; Blood Urea Nitrogen 9 mg/dL (7-17); Carbon Dioxide 27 mmol/L (22-30); Chloride 94 mmol/L (98-107); Glucose 112 mg/dL (74-99); Magnesium 1.8 mg/dL (1.6-2.3); Potassium 4.2 mmol/L (3.5-5.1); Sodium 127 mmol/L (137-145)
[2017-12-15] MEDS: ENOXAPARIN 40 MG/0.4 ML SYRINGE SQ SCH (08:32)
[2017-12-15] MEDS: LOSARTAN 50 MG TAB PO SCH (08:32)
[2017-12-15] MEDS: ANASTROZOLE 1 MG TAB PO SCH (08:32)
[2017-12-15] MEDS: ASPIRIN 81 MG PO SCH (08:32)
[2017-12-15] MEDS: METOPROLOL TARTRATE 25 MG TAB PO SCH ×2 (08:32→20:02)
[2017-12-15] MEDS: DOCUSATE 100 MG CAP PO SCH ×2 (08:32→20:02)
[2017-12-15] MEDS: ALBUTEROL NEBULIZED 2.5 MG/3 ML INHALATION SCH ×4 (08:33→19:52)
[2017-12-15] MEDS ORDERED: FUROSEMIDE 20 MG TAB PO STA (09:09)
--- NOTE | 2017-12-15 09:25 | P.PN ---
Subjective Patient is seen in follow-up for hyponatremia. Sodium level stable at 127 today. She is currently resting in bed. Denies any chest pain or shortness of breath. Oral intake is gradually improving. Admits to good urine output. Vital signs are stable. General: The patient appeared well nourished and normally developed. HEENT: Head exam is unremarkable. Neck is without jugular venous distension. LUNGS: Lungs are clear to auscultation and percussion. Breath sounds decreased. HEART: Rate and Rhythm are regular. First and second heart sounds normal. No murmurs, rubs or gallops. ABDOMEN: Abdominal exam reveals normal bowel sounds. Non-tender and non- distended. No evidence of peritonitis. EXTREMITITES: No clubbing, cyanosis, or edema. Objective - Vital Signs Vital signs: Vital Signs Temp 97.5 F L 12/15/17 08:00 Pulse 104 H 12/15/17 08:00 Resp 20 12/15/17 08:00 BP 140/63 12/15/17 08:00 Pulse Ox 99 12/15/17 08:00 Intake & Output 12/14/17 12/15/17 12/15/17 18:59 06:59 18:59 Intake Total 1440 360 Output Total 150 1550 Balance 1290 -1190 Weight 46.1 kg Intake: Oral 1440 360 Output: Urine 150 1550 Other: Voiding Method Toilet # Voids 1 1 - Labs CBC & Chem 7: 12/11/17 06:05 12/15/17 06:24 Labs: Abnormal Lab Results - Last 24 Hours (Table) 12/14/17 12/14/17 12/14/17 Range/Units 12:14 16:37 16:47 Sodium 126 L (137-145) mmol/L Chloride (98-107) mmol/L Creatinine (0.52-1.04) mg/dL Glucose (74-99) mg/dL POC Glucose (mg/dL) 112 H 125 H (75-99) mg/dL 12/15/17 12/15/17 Range/Units 06:24 06:34 Sodium 127 L (137-145) mmol/L Chloride 94 L (98-107) mmol/L Creatinine 0.45 L (0.52-1.04) mg/dL Glucose 112 H (74-99) mg/dL POC Glucose (mg/dL) 122 H (75-99) mg/dL Assessment and Plan Plan: Assessment: #1. Hyponatremia which was initially hypovolemic in nature and did improve with IV hydration. 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 She was also taking chlorthalidone as an outpatient which is currently held. Sodium level 127 today. Her urine is now quite dilute which is expected after getting Lasix. #2. Hypokalemia status post placement. Improved. #3. Benign hypertension. Controlled. Plan: Continue to hold off on all IV fluids. Maintain fluid restriction. Encouraged oral intake, particularly protein. Repeat sodium level at 5 PM today. Maintain current antihypertensives. Lasix 20 mg orally once today.
--- NOTE | 2017-12-15 09:32 | P.PN ---
Subjective Progress Note Date: 12/15/17 Principal diagnosis: hyponatremia 72 y/o female that was admitted with severe hyponatremia(96). Patient has been treated with 3% saline. Patient was given tolvaptan 2 days ago. Patient with no nausea, no abdominal pain, no fever. Objective - Vital Signs Vital signs: Vital Signs Temp 97.5 F L 12/15/17 08:00 Pulse 104 H 12/15/17 08:00 Resp 20 12/15/17 08:00 BP 140/63 12/15/17 08:00 Pulse Ox 99 12/15/17 08:00 Intake & Output 12/14/17 12/15/17 12/15/17 18:59 06:59 18:59 Intake Total 1440 360 Output Total 150 1550 Balance 1290 -1190 Weight 46.1 kg Intake: Oral 1440 360 Output: Urine 150 1550 Other: Voiding Method Toilet # Voids 1 1 - Exam gen:alert and oriented lungs:clear to auscultation heart:s1s2 abdomen:soft and depressible,non tender ext:no edema - Labs CBC & Chem 7: 12/11/17 06:05 12/15/17 06:24 Labs: Abnormal Lab Results - Last 24 Hours (Table) 12/14/17 12/14/17 12/14/17 Range/Units 12:14 16:37 16:47 Sodium 126 L (137-145) mmol/L Chloride (98-107) mmol/L Creatinine (0.52-1.04) mg/dL Glucose (74-99) mg/dL POC Glucose (mg/dL) 112 H 125 H (75-99) mg/dL 12/15/17 12/15/17 Range/Units 06:24 06:34 Sodium 127 L (137-145) mmol/L Chloride 94 L (98-107) mmol/L Creatinine 0.45 L (0.52-1.04) mg/dL Glucose 112 H (74-99) mg/dL POC Glucose (mg/dL) 122 H (75-99) mg/dL Assessment and Plan (1) Hyponatremia Narrative/Plan: Sodium 127 today nephrology following Current Visit: Yes Status: Acute Code(s): E87.1 - HYPO-OSMOLALITY AND HYPONATREMIA SNOMED Code(s): 19077691 (2) Hypertension Narrative/Plan: on losartan and atenolol off chlorthalidone Current Visit: Yes Status: Acute Code(s): I10 - ESSENTIAL (PRIMARY) HYPERTENSION SNOMED Code(s): 99961819 (3) Diabetes mellitus Narrative/Plan: currently on sliding scale of insulin off metformin controlled Current Visit: Yes Status: Acute Code(s): E11.9 - TYPE 2 DIABETES MELLITUS WITHOUT COMPLICATIONS SNOMED Code(s): 44485417 (4) Hyperlipidemia Narrative/Plan: lipitor Current Visit: Yes Status: Acute Code(s): E78.5 - HYPERLIPIDEMIA, UNSPECIFIED SNOMED Code(s): 37518397
[2017-12-15 11:37] LABS: Glucose,Whole Blood 105 mg/dL (75-99)
[2017-12-15] MEDS: CHOLECALCIFEROL 1,000 UNIT TAB PO SCH (11:42)
[2017-12-15 16:48] LABS: Glucose,Whole Blood 121 mg/dL (75-99)
[2017-12-15] MEDS: HYDROcodone/APAP 5-325MG 1 EACH TAB PO PRN (17:00)
[2017-12-15] MEDS: ATORVASTATIN 40 MG TAB PO SCH (20:02)
[2017-12-15 20:26] LABS: Glucose,Whole Blood 141 mg/dL (75-99)
[2017-12-15 20:55] LABS: Glucose,Whole Blood 100 mg/dL (75-99)
[2017-12-15] MEDS: ACETAMINOPHEN TAB 325 MG TAB PO PRN (21:31)
[2017-12-16 07:30] LABS: Glucose,Whole Blood 108 mg/dL (75-99)
[2017-12-16] MEDS: INSULIN ASPART 100 UNIT/ML 1 ML 10 ML VIAL SQ SCH ×4 (07:44→21:00)
[2017-12-16] MEDS: ALBUTEROL NEBULIZED 2.5 MG/3 ML INHALATION SCH ×4 (07:44→20:27)
[2017-12-16] MEDS: ENOXAPARIN 40 MG/0.4 ML SYRINGE SQ SCH (09:12)
[2017-12-16] MEDS: DOCUSATE 100 MG CAP PO SCH ×2 (09:12→20:59)
[2017-12-16] MEDS: ANASTROZOLE 1 MG TAB PO SCH (09:13)
[2017-12-16] MEDS: LOSARTAN 50 MG TAB PO SCH (09:13)
[2017-12-16] MEDS: ASPIRIN 81 MG PO SCH (09:13)
[2017-12-16] MEDS: METOPROLOL TARTRATE 25 MG TAB PO SCH ×2 (09:13→21:00)
[2017-12-16] MEDS: ACETAMINOPHEN TAB 325 MG TAB PO PRN ×2 (09:20→22:50)
[2017-12-16 09:29] LABS: Anion Gap 11 mmol/L; Blood Urea Nitrogen 14 mg/dL (7-17); Calcium 8.9 mg/dL (8.4-10.2); Carbon Dioxide 23 mmol/L (22-30); Chloride 94 mmol/L (98-107); Glucose 143 mg/dL (74-99); Magnesium 1.7 mg/dL (1.6-2.3); Potassium 4.2 mmol/L (3.5-5.1); Sodium 128 mmol/L (137-145)
[2017-12-16] MEDS ORDERED: FUROSEMIDE 10 MG/ML 2 ML VIAL IV STA (10:12)
--- NOTE | 2017-12-16 10:35 | P.PN ---
Subjective Patient is seen in follow-up for hyponatremia. Sodium level is up to 128 today. She is currently resting in bed. Denies any chest pain or shortness of breath. Oral intake is gradually improving. Admits to good urine output. Denies any active complaints at this time. Vital signs are stable. General: The patient appeared well nourished and normally developed. HEENT: Head exam is unremarkable. Neck is without jugular venous distension. LUNGS: Lungs are clear to auscultation and percussion. Breath sounds decreased. HEART: Rate and Rhythm are regular. First and second heart sounds normal. No murmurs, rubs or gallops. ABDOMEN: Abdominal exam reveals normal bowel sounds. Non-tender and non- distended. No evidence of peritonitis. EXTREMITITES: No clubbing, cyanosis, or edema. Objective - Vital Signs Vital signs: Vital Signs Temp 97.4 F L 12/16/17 06:33 Pulse 95 12/16/17 06:33 Resp 12 12/16/17 06:33 BP 137/49 12/16/17 06:33 Pulse Ox 100 12/16/17 06:33 Intake & Output 12/15/17 12/16/17 12/16/17 18:59 06:59 18:59 Intake Total 1920 Output Total 300 Balance 1620 Weight 46.5 kg Intake: Oral 1920 Output: Urine 300 Other: Voiding Method Toilet # Voids 1 1 - Labs CBC & Chem 7: 12/11/17 06:05 12/16/17 08:21 Labs: Abnormal Lab Results - Last 24 Hours (Table) 12/15/17 12/15/17 12/15/17 Range/Units 11:27 16:46 17:06 Sodium 127 L (137-145) mmol/L Chloride (98-107) mmol/L Glucose (74-99) mg/dL POC Glucose (mg/dL) 105 H 121 H (75-99) mg/dL 12/15/17 12/15/17 12/16/17 Range/Units 20:25 20:54 07:26 Sodium (137-145) mmol/L Chloride (98-107) mmol/L Glucose (74-99) mg/dL POC Glucose (mg/dL) 141 H 100 H 108 H (75-99) mg/dL 12/16/17 Range/Units 08:21 Sodium 128 L (137-145) mmol/L Chloride 94 L (98-107) mmol/L Glucose 143 H (74-99) mg/dL POC Glucose (mg/dL) (75-99) mg/dL Assessment and Plan Plan: Assessment: #1. Hyponatremia which was initially hypovolemic in nature and did improve with IV hydration. 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 She was also taking chlorthalidone as an outpatient which is currently held. Sodium level 128 today. Her urine is now quite dilute which is expected after getting Lasix. #2. Hypokalemia status post placement. Improved. #3. Benign hypertension. Controlled. Plan: Continue to hold off on all IV fluids. Maintain fluid restriction. Encouraged oral intake, particularly protein. Repeat sodium level at 5 PM today. Maintain current antihypertensives. Lasix 20 mg IV once today.
[2017-12-16] MEDS: CHOLECALCIFEROL 1,000 UNIT TAB PO SCH (11:20)
[2017-12-16 12:05] LABS: Glucose,Whole Blood 109 mg/dL (75-99)
--- NOTE | 2017-12-16 12:37 | P.PN ---
Subjective Principal diagnosis: Confusion No complaints Objective - Vital Signs Vital signs: Vital Signs Temp 97.4 F L 12/16/17 06:33 Pulse 95 12/16/17 06:33 Resp 12 12/16/17 06:33 BP 137/49 12/16/17 06:33 Pulse Ox 100 12/16/17 06:33 Intake & Output 12/15/17 12/16/17 12/16/17 18:59 06:59 18:59 Intake Total 1920 Output Total 300 Balance 1620 Weight 46.5 kg Intake: Oral 1920 Output: Urine 300 Other: Voiding Method Toilet # Voids 1 1 - Exam Constitutional: No acute distress, conversant, pleasant Eyes: Anicteric sclerae, moist conjunctiva, no lid-lag PERRLA ENMT: NC/AT Oropharynx clear, no erythema, exudates Neck: Supple, FROM, no masses, or JVD No carotid bruits No thyromegaly Lungs: Clear to auscultation Normal respiratory effort, no accessory muscle use Cardiovascular: Heart regular in rate and rhythm, No murmurs, gallops, or rubs No peripheral edema Abdominal: Soft Nontender, Skin: Normal temperature, tone, Extremities: No digital cyanosis No clubbing Pedal pulses intact and symmetrical Radial pulses intact and symmetrical Normal gait and station No calf tenderness Psychiatric:Alert and oriented to person, place and time Appropriate affect Intact judgement Neuro: Generalized weakness - Labs CBC & Chem 7: 12/11/17 06:05 12/16/17 08:21 Labs: Abnormal Lab Results - Last 24 Hours (Table) 12/15/17 12/15/17 12/15/17 Range/Units 16:46 17:06 20:25 Sodium 127 L (137-145) mmol/L Chloride (98-107) mmol/L Glucose (74-99) mg/dL POC Glucose (mg/dL) 121 H 141 H (75-99) mg/dL 12/15/17 12/16/17 12/16/17 Range/Units 20:54 07:26 08:21 Sodium 128 L (137-145) mmol/L Chloride 94 L (98-107) mmol/L Glucose 143 H (74-99) mg/dL POC Glucose (mg/dL) 100 H 108 H (75-99) mg/dL 12/16/17 Range/Units 11:50 Sodium (137-145) mmol/L Chloride (98-107) mmol/L Glucose (74-99) mg/dL POC Glucose (mg/dL) 109 H (75-99) mg/dL Assessment and Plan Plan: Hyponatremia -Likely secondary to chlorthalidone vs SIADH -Fluid restriction -Currently improving -Repeat BMP at 5 PM and in am -Nephrology following, given 1 dose of Lasix 20 mg today Hypothyroidism: TSH low and free T4 high Need outpatient workup Shingles Pain control DM 2 On sliding scale insulin will continue to monitor HTN, hyperlipidemia, GERD, osteoporosis Continue current medications All stable Anticipate discharge to 2 days
[2017-12-16 16:30] VITALS: RESP 16
[2017-12-16 17:39] LABS: Glucose,Whole Blood 126 mg/dL (75-99)
[2017-12-16] MEDS ORDERED: FUROSEMIDE 10 MG/ML 4 ML VIAL IV STA (18:05)
[2017-12-16] MEDS: HYDROcodone/APAP 5-325MG 1 EACH TAB PO PRN (18:49)
[2017-12-16 20:44] LABS: Glucose,Whole Blood 144 mg/dL (75-99)
[2017-12-16] MEDS: ATORVASTATIN 40 MG TAB PO SCH (20:59)
[2017-12-17 06:31] VITALS: BP 177/80; PULSE 95; TEMP 97.7
[2017-12-17 07:44] LABS: Glucose,Whole Blood 138 mg/dL (75-99)
[2017-12-17] MEDS: INSULIN ASPART 100 UNIT/ML 1 ML 10 ML VIAL SQ SCH ×2 (08:14→12:17)
[2017-12-17] MEDS: ANASTROZOLE 1 MG TAB PO SCH (08:15)
[2017-12-17] MEDS: ASPIRIN 81 MG PO SCH (08:15)
[2017-12-17] MEDS: DOCUSATE 100 MG CAP PO SCH (08:15)
[2017-12-17] MEDS: LOSARTAN 50 MG TAB PO SCH (08:15)
[2017-12-17] MEDS: METOPROLOL TARTRATE 25 MG TAB PO SCH (08:15)
[2017-12-17] MEDS: ENOXAPARIN 40 MG/0.4 ML SYRINGE SQ SCH (08:15)
[2017-12-17 08:55] LABS: Anion Gap 11 mmol/L; Blood Urea Nitrogen 18 mg/dL (7-17); Calcium 9.5 mg/dL (8.4-10.2); Carbon Dioxide 29 mmol/L (22-30); Chloride 89 mmol/L (98-107); Glucose 159 mg/dL (74-99); Potassium 3.9 mmol/L (3.5-5.1); Sodium 129 mmol/L (137-145)
[2017-12-17] MEDS: ALBUTEROL NEBULIZED 2.5 MG/3 ML INHALATION SCH ×2 (11:21→15:27)
--- NOTE | 2017-12-17 11:32 | P.PN ---
Subjective Patient is seen in follow-up for hyponatremia. Sodium level is up to 129 today. She is currently resting in bed. Denies any chest pain or shortness of breath. Oral intake is gradually improving. Admits to good urine output. Denies any active complaints at this time. Vital signs are stable. General: The patient appeared well nourished and normally developed. HEENT: Head exam is unremarkable. Neck is without jugular venous distension. LUNGS: Lungs are clear to auscultation and percussion. Breath sounds decreased. HEART: Rate and Rhythm are regular. First and second heart sounds normal. No murmurs, rubs or gallops. ABDOMEN: Abdominal exam reveals normal bowel sounds. Non-tender and non- distended. No evidence of peritonitis. EXTREMITITES: No clubbing, cyanosis, or edema. Objective - Vital Signs Vital signs: Vital Signs Temp 97.7 F 12/17/17 06:30 Pulse 95 12/17/17 06:30 Resp 16 12/17/17 06:30 BP 177/80 12/17/17 06:30 Pulse Ox 96 12/17/17 06:30 Intake & Output 12/16/17 12/17/17 12/17/17 18:59 06:59 18:59 Intake Total 720 Output Total 2 Balance 718 Weight 47 kg Intake: Oral 720 Output: Stool 2 Other: Voiding Method Toilet Toilet # Voids 3 2 - Labs CBC & Chem 7: 12/11/17 06:05 12/17/17 08:22 Labs: Abnormal Lab Results - Last 24 Hours (Table) 12/16/17 12/16/17 12/16/17 Range/Units 11:50 17:24 17:36 Sodium 127 L (137-145) mmol/L Chloride (98-107) mmol/L BUN (7-17) mg/dL Glucose (74-99) mg/dL POC Glucose (mg/dL) 109 H 126 H (75-99) mg/dL 12/16/17 12/17/17 12/17/17 Range/Units 20:40 07:42 08:22 Sodium 129 L (137-145) mmol/L Chloride 89 L (98-107) mmol/L BUN 18 H (7-17) mg/dL Glucose 159 H (74-99) mg/dL POC Glucose (mg/dL) 144 H 138 H (75-99) mg/dL Assessment and Plan Plan: Assessment: #1. Hyponatremia which was initially hypovolemic in nature and did improve with IV hydration. 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 She was also taking chlorthalidone as an outpatient which is currently held. Sodium level 129 today. Her urine is now quite dilute which is expected after getting Lasix. #2. Hypokalemia status post placement. Improved. #3. Benign hypertension. Controlled, BP somewhat labile. Plan: Continue to hold off on all IV fluids. Maintain fluid restriction. Encouraged oral intake, particularly protein. Maintain current antihypertensives. Stable to be discharged home from nephrology standpoint on Lasix 20 mg orally twice daily. She will need to get a basic metabolic panel checked within 2-3 days of discharge and follow-up as an outpatient in 1-2 weeks.
[2017-12-17 11:54] LABS: Glucose,Whole Blood 124 mg/dL (75-99)
[2017-12-17] MEDS: CHOLECALCIFEROL 1,000 UNIT TAB PO SCH (12:38)
--- NOTE | 2017-12-17 15:31 | P.DS ---
Providers Date of admission: 12/09/17 05:27 Expected date of discharge: 12/17/17 Attending physician: Tamie Jackson DO Consults: 12/09/17 05:24 Consult Physician Urgent Consulting Provider: Ashok Givens Consult Reason/Comments: Hyponatremia Do you want consulting provider notified?: Already Contacted Consult Physician Urgent Consulting Provider: Montserrat Martinez Consult Reason/Comments: Hyponatremia Do you want consulting provider notified?: Already Contacted Primary care physician: Dmitry Finn MD Hospital Course: 72-year-old female with a past medical history of diabetes mellitus type 2, hypertension, dyslipidemia, osteoporosis, and prior breast cancer treated with mastectomy and chemo who was brought into the emergency department by her family for increased confusion. Family provided a history as patient has increased confusion. They stated for the last 4-5 days prior to admission she has been changing from her baseline. She has been talking when they're not asking her questions consistent with auditory hallucinations. They state that she has been complaining of dizziness and has been off balance. She also has developed profound weakness and had inability to stand from a sitting position and was not able to walk today. She had decreased urination as well. Her appetite was low. She did start taking Valtrex on November 29 or due to severe outbreak of shingles. She did have the shingles vaccine in June of this year. Because of the pain she was having she was also started on [place]. None of her other medications were new. She was on chlorthalidone for quite some time. She did have right breast cancer in 2012 with a mastectomy and currently she is on hormonal therapy. On initial exam she was slightly hypertensive with a blood pressure 160/93. Initial laboratory analysis showed a marked hyponatremia of 96, potassium 2.5, glucose 170, and slightly elevated CK of 554. Chest x-ray showed mild patchy opacity along the left cardiac border which appears to represent atelectasis. CT head showed no acute process. Dr. Martinez was contacted in the emergency department and recommended admission to the ICU and patient was started on 3% saline. Arrangements were made for admission to the ICU. Further laboratory testing revealed a plasma osmolality of 206, urine osmolality was high at 357. She also has severe hyperkalemia with a potassium 2.5. Potassium was replaced. The next sodium check few hours after the first draw revealed a sodium level of 106. At that point the 3% saline was held. Later when the sodium plateaued she was restarted on IV fluids. Sodium improved but it stayed low so SIADH was considered especially that her urine osmolality is high. Chlorthalidone was also blamed to be part of the problem and its was discontinued. She was also treated throughout the hospitalization tolvaptan and Lasix by nephrology. Her thyroid testing revealed high free T4 and low TSH. Today her sodium level is 129 , nephrology cleared her for discharge. She'll be discharged home in a stable condition. A family member who was in the room on the day of discharge was told that patient needed to follow-up with her physician to investigate hyperthyroidism. Patient was advised by physical therapy to go to rehab but she refused and wanted to do outpatient physical therapy, her daughter agreed to drive her to physical therapy office. A prescription for physical therapy was provided. A follow-up BMP was also ordered on Saturday. Time for discharge 35 minutes. Patient Condition at Discharge: Fair Plan - Discharge Summary Discharge Rx Participant: No New Discharge Prescriptions: New Furosemide [Lasix] 20 mg PO BID@0900,1600 #60 tab Continue metFORMIN HCL [Glucophage] 500 mg PO DAILY Risedronate Sodium [Actonel] 35 mg PO SA Cholecalciferol (Vitamin D3) [Vitamin D3] 2,000 unit PO DAILY Ascorbic Acid [Vitamin C] 1,000 mg PO DAILY Ibuprofen 200 - 800 mg PO Q6H PRN PRN Reason: Pain Aspirin 81 mg PO DAILY Anastrozole [Arimidex] 1 mg PO DAILY Metoprolol Tartrate [Lopressor] 12.5 mg PO BID Losartan Potassium 100 mg PO DAILY Atorvastatin [Lipitor] 40 mg PO HS Atorvastatin [Lipitor] 40 mg PO HS Discontinued Glucosam/Bashir-Msm1/C/Vitaliy/Bosw [Glucosamine-Chondroitin Tablet] 1 tab PO DAILY Chlorthalidone [Hygroton] 25 mg PO DAILY valACYclovir HCL [Valtrex] 1,000 mg PO Q8HR #30 tab Discharge Medication List Anastrozole [Arimidex] 1 mg PO DAILY 10/28/17 [History] Ascorbic Acid [Vitamin C] 1,000 mg PO DAILY 10/28/17 [History] Aspirin 81 mg PO DAILY 10/28/17 [History] Atorvastatin [Lipitor] 40 mg PO HS 10/28/17 [History] Cholecalciferol (Vitamin D3) [Vitamin D3] 2,000 unit PO DAILY 10/28/17 [History] Ibuprofen 200 - 800 mg PO Q6H PRN 10/28/17 [History] Losartan Potassium 100 mg PO DAILY 10/28/17 [History] Metoprolol Tartrate [Lopressor] 12.5 mg PO BID 10/28/17 [History] Risedronate Sodium [Actonel] 35 mg PO SA 10/28/17 [History] metFORMIN HCL [Glucophage] 500 mg PO DAILY 10/28/17 [History] Atorvastatin [Lipitor] 40 mg PO HS 12/09/17 [History] Furosemide [Lasix] 20 mg PO BID@0900,1600 #60 tab 12/17/17 [Rx] Follow up Appointment(s)/Referral(s): Montserrat Martinez MD [STAFF PHYSICIAN] - 12/31/17 (Office will call you with appointment time tomorrow. ) Dmitry Finn MD [Primary Care Provider] - 12/24/17 10:20 am Patient Instructions/Handouts: Hyponatremia (DC) Activity/Diet/Wound Care/Special Instructions: Cardiac, diabetic diet. Activity as tolerated.
[2017-12-17] MEDS ORDERED: FUROSEMIDE 20 MG TAB PO SCH (16:00)
== END 2017-12-17 15:35 | disposition home or self-care (01) | DRG 643 ==
LOC: EC 03:50 → 6ICU 05:27 → 6SEL 12-10 20:37 → 4MS4W 12-15 20:39
PROVIDERS: ADMIT Internal Medicine; ATTEND Internal Medicine
DX: E22.2 Syndrome of inappropriate secretion of antidiuretic hormone (principal); G93.41 Metabolic encephalopathy; Q60.0 Renal agenesis, unilateral; J98.11 Atelectasis; E87.5 Hyperkalemia; B02.9 Zoster without complications; E83.39 Other disorders of phosphorus metabolism; E86.1 Hypovolemia; I11.9 Hypertensive heart disease without heart failure; E11.9 Type 2 diabetes mellitus without complications; E78.5 Hyperlipidemia, unspecified; E87.6 Hypokalemia; I16.0 Hypertensive urgency; I25.10 Atherosclerotic heart disease of native coronary artery without angina pectoris; I25.2 Old myocardial infarction; I51.7 Cardiomegaly; I89.0 Lymphedema, not elsewhere classified; K21.9 Gastro-esophageal reflux disease without esophagitis; K59.00 Constipation, unspecified; M81.0 Age-related osteoporosis without current pathological fracture; F41.9 Anxiety disorder, unspecified; H35.372 Puckering of macula, left eye; M19.90 Unspecified osteoarthritis, unspecified site; R27.0 Ataxia, unspecified; T50.2X5A Adverse effect of carbonic-anhydrase inhibitors, benzothiadiazides and other diuretics, initial encounter; R21 Rash and other nonspecific skin eruption; Z79.84 Long term (current) use of oral hypoglycemic drugs; Z79.82 Long term (current) use of aspirin; Z79.899 Other long term (current) drug therapy; Z79.811 Long term (current) use of aromatase inhibitors; Z85.3 Personal history of malignant neoplasm of breast; Z90.11 Acquired absence of right breast and nipple; Z92.21 Personal history of antineoplastic chemotherapy; Y92.9 Unspecified place or not applicable
CPT/HCPCS: 36415; 51702; 70450; 71045; 71046; 71260; 80048; 80051; 80053; 81001; 82550; 82553; 83605; 83735; 83930; 83935; 84100; 84132; 84295; 84300; 84439; 84443; 84484; 85025; 85610; 85730; 93005; 94640; 96361; 96365; 96366; 96372; 96376; 99291

== ENCOUNTER → 2017-12-20 | Outpatient (CLI) | payer MEDICARE, OTHER ==
[2017-12-20 08:18] LABS: Anion Gap 14 mmol/L; Blood Urea Nitrogen 15 mg/dL (7-17); Calcium 9.5 mg/dL (8.4-10.2); Carbon Dioxide 27 mmol/L (22-30); Chloride 90 mmol/L (98-107); Glucose 133 mg/dL (74-99); Potassium 3.9 mmol/L (3.5-5.1); Sodium 131 mmol/L (137-145)
== END | disposition home or self-care (01) ==
LOC: LABWHC1 06:52
PROVIDERS: ATTEND Internal Medicine
DX: E87.5 Hyperkalemia (principal); E22.2 Syndrome of inappropriate secretion of antidiuretic hormone; E11.9 Type 2 diabetes mellitus without complications
CPT/HCPCS: 36415; 80048

== ENCOUNTER → 2019-05-18 | Outpatient (CLI) | payer MEDICARE ==
[2019-05-18 11:43] LABS: T4, Free (Free Thyroxine) 1.2 ng/dL (0.80-1.80)
== END | disposition home or self-care (01) ==
LOC: LABWHC1 07:26
PROVIDERS: ATTEND Internal Medicine
DX: E04.1 Nontoxic single thyroid nodule (principal)
CPT/HCPCS: 36415; 84439; 84443; 84481

== ENCOUNTER → 2020-07-22 | Outpatient (CLI) | payer MEDICARE ==
[2020-07-22 11:29] LABS: Urine Creatinine 26.2 mg/dL
[2020-07-22 11:46] LABS: African American GFR (CKD) 83.6 (60.0-200.0); Albumin 4.2 g/dL (3.80-4.90); Albumin/Globulin Ratio 1.56 (1.60-3.17); Anion Gap 8.9 mmol/L (4.00-12.00); BUN/Creat Ratio 11.25 Ratio (12.00-20.00); Calcium 9.4 mg/dL (8.7-10.3); Carbon Dioxide 29.1 mmol/L (21.6-31.8); Chol/HDL Ratio 2.74; Globulin 2.7 g/dL (1.6-3.3); LDL Cholesterol,Calculated 82.2 mg/dL (0.0-131.0); Non-African American GFR(CKD) 72.1 (60.0-200.0); Potassium 3.5 mmol/L (3.5-5.5); Total Bilirubin 0.5 mg/dL (0.2-1.2); Total Protein 6.9 g/dL (6.2-8.2); VLDL Calculation 18.8 mg/dL (5.00-40.00)
[2020-07-22 11:53] LABS: T4, Free (Free Thyroxine) 1.1 ng/dL (0.80-1.80)
== END | disposition home or self-care (01) ==
LOC: LABWHC1 07:15
PROVIDERS: ATTEND Internal Medicine
DX: E04.1 Nontoxic single thyroid nodule (principal); E78.00 Pure hypercholesterolemia, unspecified; I10 Essential (primary) hypertension; E11.9 Type 2 diabetes mellitus without complications; R80.9 Proteinuria, unspecified
CPT/HCPCS: 36415; 80053; 80061; 82043; 82570; 83036; 84439; 84443; 84481

== ENCOUNTER → 2021-07-17 | Outpatient (CLI) | payer MEDICARE ==
[2021-07-17 16:10] LABS: Chol/HDL Ratio 3.09 Ratio; HDL Cholesterol 66.6 mg/dL (40.00-60.00); LDL Cholesterol,Calculated 113.8 mg/dL (0.0-131.0); VLDL Calculation 25.6 mg/dL (5.00-40.00)
[2021-07-17 16:34] LABS: Estimated Average Glucose 148.46
[2021-07-17 18:27] LABS: Albumin 4.5 g/dL (3.8-4.9); Albumin/Globulin Ratio 1.47 (1.60-3.17); Anion Gap 16.9 mmol/L (4.00-12.00); BUN/Creat Ratio 11.05 Ratio (12.00-20.00); Blood Urea Nitrogen 9.4 mg/dL (9.0-27.0); Calcium 10.1 mg/dL (8.7-10.3); Carbon Dioxide 22.3 mmol/L (21.6-31.8); Globulin 3.1 g/dL (1.6-3.3); Non-African American GFR(CKD) 66.5 (60.0-200.0); Potassium 4.1 mmol/L (3.5-5.5); Total Bilirubin 0.3 mg/dL (0.30-1.20); Total Protein 7.5 g/dL (6.2-8.2)
== END | disposition home or self-care (01) ==
LOC: LABWHC1 08:01
PROVIDERS: ATTEND Internal Medicine
DX: I25.118 Atherosclerotic heart disease of native coronary artery with other forms of angina pectoris (principal); E11.9 Type 2 diabetes mellitus without complications; I10 Essential (primary) hypertension; E78.00 Pure hypercholesterolemia, unspecified; E87.1 Hypo-osmolality and hyponatremia
CPT/HCPCS: 36415; 80053; 80061; 83036

== ENCOUNTER 2021-09-12 06:56 | Emergency (ER) | payer MEDICARE ==
[2021-09-12] MEDS ORDERED: KETOROLAC 15 MG/ML 1 ML VIAL IM STA (07:26)
[2021-09-12 07:29] VITALS: BP 166/84; PULSE 87; RESP 22; TEMP 98.9
--- NOTE | 2021-09-12 07:29 | ED ---
General Adult HPI - General Chief complaint: Fall Stated complaint: Fall Time Seen by Provider: 09/12/21 07:06 Source: patient, family, RN notes reviewed Mode of arrival: ambulatory Limitations: no limitations - History of Present Illness Initial comments: 76-year-old female presents to the emergency room for a chief complaint of fall. About 3 days ago patient had a mechanical fall at home. Her daughter states that her brother was rushing into the house with the phone and patient went to turn around and fell backwards. She has been having right hip and back pain since that time. No bladder changes although she is somewhat constipated. No fevers. No weakness of the legs. Patient is able to walk on the right hip but does limp according to the daughter. She did not hit her head or neck. She does not take blood thinners.Patient has no other complaints at this time including shortness of breath, chest pain, abdominal pain, nausea or vomiting, headache, or visual changes. - Related Data Home Medications Medication Instructions Recorded Confirmed Anastrozole [Arimidex] 1 mg PO DAILY 10/28/17 12/09/17 Ascorbic Acid [Vitamin C] 1,000 mg PO DAILY 10/28/17 12/09/17 Aspirin 81 mg PO DAILY 10/28/17 12/09/17 Atorvastatin [Lipitor] 40 mg PO HS 10/28/17 12/09/17 Cholecalciferol (Vitamin D3) 2,000 unit PO DAILY 10/28/17 12/09/17 [Vitamin D3] Ibuprofen 200 - 800 mg PO Q6H PRN 10/28/17 12/09/17 Losartan Potassium 100 mg PO DAILY 10/28/17 12/09/17 Metoprolol Tartrate [Lopressor] 12.5 mg PO BID 10/28/17 12/09/17 Risedronate Sodium [Actonel] 35 mg PO SA 10/28/17 12/09/17 metFORMIN HCL [Glucophage] 500 mg PO DAILY 10/28/17 12/09/17 Atorvastatin [Lipitor] 40 mg PO HS 12/09/17 12/09/17 Previous Rx's Medication Instructions Recorded Furosemide [Lasix] 20 mg PO BID@0900,1600 #60 tab 12/17/17 Allergies Allergy/AdvReac Type Severity Reaction Status Date / Time lisinopril Allergy Cough Verified 09/12/21 07:03 Review of Systems ROS Statement: Those systems with pertinent positive or pertinent negative responses have been documented in the HPI. ROS Other: All systems not noted in ROS Statement are negative. Past Medical History Past Medical History: Coronary Artery Disease (CAD), Cancer, Diabetes Mellitus, Eye Disorder, GERD/Reflux, Hyperlipidemia, Hypertension, Myocardial Infarction (SD), Osteoarthritis (OA) Additional Past Medical History / Comment(s): Newly diagnosed shingelles infection, R breast cancer with surgery and chemo, R arm lymphedema, NIDDM type II, "mild" SD, osteoporosis, L eye macular pucker, born with one kidney, benign thyroid nodules. Last Myocardial Infarction Date:: ?2004 or 2005 History of Any Multi-Drug Resistant Organisms: None Reported Past Surgical History: Breast Surgery, Section Additional Past Surgical History / Comment(s): right mastectomy, thyroid nodules biopsied (benign), colonoscopy. Past Anesthesia/Blood Transfusion Reactions: No Reported Reaction Past Psychological History: No Psychological Hx Reported Smoking Status: Never smoker Past Alcohol Use History: None Reported Past Drug Use History: None Reported - Past Family History Father History Unknown: Yes Additional Family Medical History / Comment(s): from complications from kidney failure d/t BPH Mother Additional Family Medical History / Comment(s): from diabetic complications General Exam Limitations: no limitations General appearance: alert, in no apparent distress Head exam: Present: atraumatic Eye exam: Present: normal appearance, PERRL, EOMI. Absent: scleral icterus, conjunctival injection ENT exam: Present: normal exam, mucous membranes moist Neck exam: Present: normal inspection, full ROM. Absent: tenderness Respiratory exam: Present: normal lung sounds bilaterally. Absent: respiratory distress, wheezes Cardiovascular Exam: Present: regular rate, normal rhythm, normal heart sounds GI/Abdominal exam: Present: soft, normal bowel sounds. Absent: distended, tenderness Back exam: Present: vertebral tenderness (minimal generalized tenderness). Absent: CVA tenderness (R), CVA tenderness (L) Neurological exam: Present: alert Course Vital Signs 09/12/21 06:57 Temperature 98.9 F Pulse Rate 87 Respiratory 22 Rate Blood Pressure 166/84 O2 Sat by Pulse 99 Oximetry Medical Decision Making - Medical Decision Making Vitals are stable. Patient is well appearing. Patient is able to ambulate. X- rays were obtained. X-ray of the right hip and pelvis shows no acute fracture. X-ray of the lumbar spine shows several degenerative changes. She has severe grade 2 anterolisthesis on L5-S1 as well as mild to moderate disc space narrowing. She also has a chronic-type compression fracture at T10. At this time I did discuss pain medication with the patient and heard her daughter WAS a small prescription. They will try MiraLAX as well to counteract this. They will follow up with primary care and orthopedics. They will return here for any worsening symptoms. Disposition Clinical Impression: Back pain, Fall Disposition: HOME SELF-CARE Condition: Good Instructions (If sedation given, give patient instructions): Back Pain (ED) Additional Instructions: Take Tylenol 3 as needed for pain but remember you are at increased risk of falls with this. Take Miralax for constipation. Please follow-up with your doctor. Return to the emergency room for any worsening symptoms. Is patient prescribed a controlled substance at d/c from ED?: No Referrals: Martínez Rabago DO [Doctor of Osteopathic Medicine] - 1-2 days Effie Andrew MD [STAFF PHYSICIAN] - 1-2 days Time of Disposition: 08:57
--- NOTE | 2021-09-12 08:22 | XR ---
EXAMINATION TYPE: XR Hip RT and AP Pelvis DATE OF EXAM: 09/12/2021 COMPARISON: NONE HISTORY: Fall injury with pelvic and right hip pain. TECHNIQUE: A single AP view of the pelvis is obtained. Two views of the right hip are obtained. FINDINGS: There is no acute fracture/dislocation evident in the pelvis. The sacroiliac joints appea r symmetric and within normal limits. Pubic symphysis is intact. Moderate axial joint space loss both hips slightly more prominent right hip. Scattered left-sided pelvic phleboliths. Two views of right hip show no acute fracture or dislocation. No focal lytic or sclerotic lesion see n in the proximal right femur. Mild right head neck collar spurring. The overlying soft tissue is unr emarkable. IMPRESSION: There is no acute fracture or dislocation in the pelvis or right hip.
--- NOTE | 2021-09-12 08:27 | XR ---
EXAMINATION TYPE: XR lumbar spine 2 or 3V DATE OF EXAM: 09/12/2021 CLINICAL HISTORY: Fall injury with pain TECHNIQUE: Frontal and lateral images of the lumbar spine are obtained. COMPARISON: None FINDINGS: There are 5 lumbar type vertebral bodies identified assuming bilateral hypoplastic T12 rib s. Osseous structures are demineralized which is noted to lower radiographic sensitivity. Bilateral p ars defect L5 level with severe grade 2 anterolisthesis L5 on S1. Mild to moderate disc space narrowi ng greatest posteriorly at this level is present. Mild to moderate multilevel anterior and lateral sp urring. Vertebral body heights fairly well maintained. Mild to moderate presumed chronic type nitza lillian fracture at T10 level seen on lateral view. Mild to moderate overlying arterial vascular calcifi cation. No acute displaced fracture. IMPRESSION: As above.
[2021-09-12] MEDS ORDERED: ACET/COD 300 MG/30 MG STARTER PACK 6 TAB BTL PO STA (09:06)
== END 2021-09-12 09:24 | disposition home or self-care (01) ==
LOC: EC 06:56
DX: M54.50 Low back pain, unspecified (principal); I25.10 Atherosclerotic heart disease of native coronary artery without angina pectoris; E78.5 Hyperlipidemia, unspecified; I10 Essential (primary) hypertension; I25.2 Old myocardial infarction; M19.90 Unspecified osteoarthritis, unspecified site; E11.9 Type 2 diabetes mellitus without complications; Z87.39 Personal history of other diseases of the musculoskeletal system and connective tissue; Z79.82 Long term (current) use of aspirin; Z79.84 Long term (current) use of oral hypoglycemic drugs; Z79.899 Other long term (current) drug therapy; W19.XXXA Unspecified fall, initial encounter
CPT/HCPCS: 72100; 73502; 99283; 96372; J1885

== ENCOUNTER → 2021-10-23 | Outpatient (CLI) | payer MEDICARE ==
--- NOTE | 2021-10-23 16:17 | NM ---
EXAMINATION TYPE: NM bone scan whole body, HI bone SPECT DATE OF EXAM: 10/23/2021 COMPARISON: Plain film lumbar spine and pelvis 09/12/2021 HISTORY: M54.6 Pain in thoracic spine, S22.070A, M41.26 Delayed whole-body scanning was performed following the injection of 21.6 mCi Tc 99m MDP. Images acq uired 3 hours post injection. SPECT images were obtained through the thoracic spine. FINDINGS: Bandlike area of increased uptake is noted within the lower thoracic spine which likely corresponds t o the T11 compression deformity seen on plain film. Uptake within the feet, knees, wrists, shoulders, sternoclavicular joints is likely degenerative. The re is uptake in the lower lumbar spine centered over the pelvis is sacral region possibly related to patient's spondylolysis, spondylolisthesis and some uptake along the sacroiliac joints. Left renal up take is not seen, correlate. Uptake along the superior endplate of L4 region or possibly L3 may be du e to endplate compression deformity. There is uptake in the cervical spine which is likely degenerati ve. IMPRESSION: Osteoporotic compression fracture favored at T11. There are degenerative changes, osteoarthritic kumar ges also suspected. Uptake within the pelvis is indeterminate. Lack of left renal uptake.
== END | disposition home or self-care (01) ==
LOC: RADNMMAIN 09:48
PROVIDERS: ATTEND Physical Medicine & Rehabilitation
DX: S22.070A Wedge compression fracture of T9-T10 vertebra, initial encounter for closed fracture (principal); M54.6 Pain in thoracic spine; M41.26 Other idiopathic scoliosis, lumbar region; M43.16 Spondylolisthesis, lumbar region; X58.XXXA Exposure to other specified factors, initial encounter
CPT/HCPCS: 78306; 78803; A9503

== ENCOUNTER 2022-04-18 16:00 | Emergency (ER) | payer MEDICARE ==
[2022-04-18 16:13] VITALS: BP 159/82; PULSE 91; RESP 16; TEMP 98.3
--- NOTE | 2022-04-18 16:56 | ED ---
General Adult HPI - General Chief complaint: Extremity Problem,Nontraumatic Stated complaint: leg pain Time Seen by Provider: 04/18/22 16:52 Source: patient, family, RN notes reviewed, old records reviewed Mode of arrival: wheelchair Limitations: no limitations - History of Present Illness Initial comments: This is a well-appearing 77-year-old female in no acute distress presents to emergency room with right lower extremity pain. Family at bedside states that they were in a car driving for extended hours for the past 2 days and they're concerned for DVT. She has no history of pulmonary embolism. No history of DVT. She does take aspirin a day for coronary artery disease. -: days(s) (2) Location: right, lower extremity Severity scale (1-10): 4 Quality: aching, constant Consistency: constant Worsens with: other Associated Symptoms: denies other symptoms (Patient) Treatments Prior to Arrival: none - Related Data Home Medications Medication Instructions Recorded Confirmed Anastrozole [Arimidex] 1 mg PO DAILY 10/28/17 12/09/17 Ascorbic Acid [Vitamin C] 1,000 mg PO DAILY 10/28/17 12/09/17 Aspirin 81 mg PO DAILY 10/28/17 12/09/17 Atorvastatin [Lipitor] 40 mg PO HS 10/28/17 12/09/17 Cholecalciferol (Vitamin D3) 2,000 unit PO DAILY 10/28/17 12/09/17 [Vitamin D3] Ibuprofen 200 - 800 mg PO Q6H PRN 10/28/17 12/09/17 Losartan Potassium 100 mg PO DAILY 10/28/17 12/09/17 Metoprolol Tartrate [Lopressor] 12.5 mg PO BID 10/28/17 12/09/17 Risedronate Sodium [Actonel] 35 mg PO SA 10/28/17 12/09/17 metFORMIN HCL [Glucophage] 500 mg PO DAILY 10/28/17 12/09/17 Atorvastatin [Lipitor] 40 mg PO HS 12/09/17 12/09/17 Previous Rx's Medication Instructions Recorded Furosemide [Lasix] 20 mg PO BID@0900,1600 #60 tab 12/17/17 Acetaminophen Tab [Tylenol] 650 mg PO Q4H PRN #30 tab 04/18/22 Allergies Allergy/AdvReac Type Severity Reaction Status Date / Time lisinopril Allergy Cough Verified 04/18/22 16:12 Review of Systems ROS Statement: Those systems with pertinent positive or pertinent negative responses have been documented in the HPI. ROS Other: All systems not noted in ROS Statement are negative. Past Medical History Past Medical History: Coronary Artery Disease (CAD), Cancer, Diabetes Mellitus, Eye Disorder, GERD/Reflux, Hyperlipidemia, Hypertension, Myocardial Infarction (NV), Osteoarthritis (OA) Additional Past Medical History / Comment(s): Newly diagnosed shingelles infection, R breast cancer with surgery and chemo, R arm lymphedema, NIDDM type II, "mild" [place], osteoporosis, L eye macular pucker, born with one kidney, benign thyroid nodules. Last Myocardial Infarction Date:: ?2004 or 2005 History of Any Multi-Drug Resistant Organisms: None Reported Past Surgical History: Breast Surgery, Section Additional Past Surgical History / Comment(s): right mastectomy, thyroid nodules biopsied (benign), colonoscopy. Past Anesthesia/Blood Transfusion Reactions: No Reported Reaction Past Psychological History: No Psychological Hx Reported Smoking Status: Never smoker Past Alcohol Use History: None Reported Past Drug Use History: None Reported - Past Family History Father History Unknown: Yes Additional Family Medical History / Comment(s): from complications from kidney failure d/t BPH Mother Additional Family Medical History / Comment(s): from diabetic complications General Exam Limitations: no limitations General appearance: alert, in no apparent distress Head exam: Present: atraumatic, normocephalic Eye exam: Absent: scleral icterus, conjunctival injection Respiratory exam: Present: normal lung sounds bilaterally. Absent: respiratory distress, accessory muscle use Cardiovascular Exam: Present: regular rate GI/Abdominal exam: Present: soft. Absent: distended, tenderness Extremities exam: Present: tenderness, normal capillary refill, calf tenderness (Right). Absent: pedal edema Neurological exam: Present: alert, oriented X3 Psychiatric exam: Present: normal affect, normal mood Skin exam: Present: warm, dry, normal color. Absent: cyanosis, diaphoretic, petechiae, pallor Course Vital Signs 04/18/22 16:09 Temperature 98.3 F Pulse Rate 91 Respiratory 16 Rate Blood Pressure 159/82 O2 Sat by Pulse 99 Oximetry Medical Decision Making - Medical Decision Making Patient presents with right leg pain concerning for DVT. She has no history of DVT or PE. There is no evident swelling to the right lower extremity. She has good range of motion. Leg is pink, warm and dry, pedal pulses are present. No evidence of injury or concern for cellulitis. Ultrasound negative for DVT. Patient does take an aspirin a day. She was given a prescription for Tylenol as requested for any discomfort. Directed to follow up with her primary care doctor this week. Return to the emergency room with any new or worsening symptoms including increased pain or swelling of the leg, chest pain or difficulty in breathing. Patient and family are agreeable to this plan of care. Case discussed with Dr. Cash. Disposition Clinical Impression: Pain in right lower leg Disposition: HOME SELF-CARE Condition: Good Instructions (If sedation given, give patient instructions): Leg Pain (ED) Additional Instructions: Follow-up with the primary care doctor this week. Return to the emergency room with any new or concerning symptoms including increased pain, difficulty breathing or chest pain. Take Tylenol as needed for pain. Prescriptions: Acetaminophen Tab [Tylenol] 650 mg PO Q4H PRN #30 tab PRN Reason: Pain Is patient prescribed a controlled substance at d/c from ED?: No Referrals: Dmitry Finn MD [Primary Care Provider] - 1-2 days Time of Disposition: 18:35
[2022-04-18] MEDS ORDERED: ACETAMINOPHEN TAB 325 MG TAB PO STA (17:07)
--- NOTE | 2022-04-18 18:03 | US ---
EXAMINATION TYPE: US venous doppler duplex LE RT DATE OF EXAM: 04/18/2022 5:37 PM COMPARISON: NONE CLINICAL HISTORY: pain swelling. Right leg pain SIDE PERFORMED: Right TECHNIQUE: The lower extremity deep venous system is examined utilizing real time linear array sonog ashley with graded compression, doppler sonography and color-flow sonography. VESSELS IMAGED: Common Femoral Vein Deep Femoral Vein Greater Saphenous Vein * Femoral Vein Popliteal Vein Small Saphenous Vein * Proximal Calf Veins (* superficial vessels) Right Leg: Appears negative for DVT Grayscale, color doppler, spectral doppler imaging performed of the deep veins of the lower extremiti es. There is normal flow, compressibility, vascular waveforms. IMPRESSION: No evidence for deep vein thrombosis of the right lower extremity.
== END 2022-04-18 18:59 | disposition home or self-care (01) ==
LOC: EC 16:00
DX: M79.661 Pain in right lower leg (principal); I25.10 Atherosclerotic heart disease of native coronary artery without angina pectoris; E11.9 Type 2 diabetes mellitus without complications; K21.9 Gastro-esophageal reflux disease without esophagitis; E78.5 Hyperlipidemia, unspecified; I21.9 Acute myocardial infarction, unspecified; M19.90 Unspecified osteoarthritis, unspecified site; Z88.8 Allergy status to other drugs, medicaments and biological substances; Z79.82 Long term (current) use of aspirin; Z79.899 Other long term (current) drug therapy
CPT/HCPCS: 99283

== ENCOUNTER → 2022-05-03 | Outpatient (CLI) | payer MEDICARE ==
--- NOTE | 2022-05-03 09:35 | US ---
EXAMINATION TYPE: US venous doppler duplex LE RT DATE OF EXAM: 05/03/2022 9:17 AM COMPARISON: NONE CLINICAL HISTORY: M79.89 OTHER SOFT TISSUE DISORDERS. Right leg pain and swelling SIDE PERFORMED: right TECHNIQUE: The lower extremity deep venous system is examined utilizing real time linear array sonog ashley with graded compression, doppler sonography and color-flow sonography. VESSELS IMAGED: Common Femoral Vein Deep Femoral Vein Greater Saphenous Vein * Femoral Vein Popliteal Vein Small Saphenous Vein * Proximal Calf Veins (* superficial vessels) Right Leg: negative for RLE dvt Grayscale, color doppler, spectral doppler imaging performed of the deep veins of the lower extremiti es. There is normal flow, compressibility, vascular waveforms. IMPRESSION: No evidence right lower extremity deep vein thrombosis.
== END | disposition home or self-care (01) ==
LOC: RADUSWWP 08:53
PROVIDERS: ATTEND Internal Medicine
DX: M79.89 Other specified soft tissue disorders (principal)
CPT/HCPCS: 85379